=== PATIENT | male | born 1980 | race Caucasian/White ===

== ENCOUNTER 2016-10-19 20:24 | Inpatient (IN) | payer MEDICAID, OTHER ==
--- NOTE | 2016-10-19 21:09 | ED ---
Psych HPI - General Chief Complaint: Psychiatric Symptoms Stated Complaint: anxiety Time Seen by Provider: 10/19/16 20:51 Source: patient, RN notes reviewed, old records reviewed Mode of arrival: ambulatory - History of Present Illness Initial Comments: Physical 36-year-old male presenting to emergency room chief complaint of severe anxiety and suicidal thoughts. Patient reports that he's had a lot of stressors over the past week including losing his job in getting argument with his fiance. Patient reports that all the small thinks that it up and he now extend his life. Patient reports that he would plan to take a bunch of pills to overdose or supplements of the river and drown. Patient states that he has had thoughts of harming other people who have hurting him but denies any specific plans and will not discuss who. Patient reports he is taking Paxil currently he reports that he does not think it is working. Patient denies any drug or alcohol use. He does report that he is on pain medication for chronic pain. Patient reports that he's had racing thoughts, and has not eaten anything in the past day. Patient denies any recent fever, chills, shortness of breath, chest pain, back pain, abdominal pain, nausea vomiting, numbness or tingling, dysuria or hematuria, constipation or diarrhea, headaches or visual changes, or any other current symptoms - Related Data Home Medications Medication Instructions Recorded Confirmed ALPRAZolam [Xanax] 1 mg PO Q8HR 12/16/15 12/16/15 Diltiazem Cd [Cardizem CD] 180 mg PO DAILY 12/16/15 12/16/15 Omeprazole [PriLOSEC] 20 mg PO AC-BRKFST 12/16/15 12/16/15 chlordiazePOXIDE HCl [Librium] 25 mg PO DAILY 12/16/15 12/16/15 oxyCODONE HCL/ACETAMINOPHEN 1 tab PO Q6H PRN 12/16/15 12/16/15 [Percocet 10-325 mg] Previous Rx's Medication Instructions Recorded Propranolol [Inderal] 20 mg PO TID #90 tab 09/08/15 PARoxetine HCL [Paxil] 40 mg PO DAILY #30 tab 10/11/15 Diltiazem HCl [Cardizem] 90 mg PO DAILY #30 tablet 12/16/15 HYDROcodone/APAP 5-325MG [Mcloud 1 tab PO Q6HR PRN #30 tab 12/16/15 5-325] Warfarin [Coumadin] 5 mg PO HS #30 tab 12/16/15 Hydrocodone/Acetaminophen [[place] 1 each PO Q6HR PRN #10 tab 12/27/15 5-325] Penicillin V Potassium [Pen Vee K] 500 mg PO QID 10 Days 12/27/15 Allergies Allergy/AdvReac Type Severity Reaction Status Date / Time tramadol HCl [From Ultra] Allergy Rash/Hives Verified 10/19/16 20:34 venom-honey bee Allergy Rash/Hives Verified 10/19/16 20:34 [bee venom (honey bee)] ziprasidone HCl [From Geodon] Allergy Swelling Verified 10/19/16 20:34 ziprasidone mesylate Allergy Swelling Verified 10/19/16 20:34 [From Geodon] Review of Systems ROS Statement: Those systems with pertinent positive or pertinent negative responses have been documented in the HPI. ROS Other: All systems not noted in ROS Statement are negative. Past Medical History Past Medical History: Atrial Fibrillation, Chest Pain / Angina, GERD/Reflux, Hypertension Additional Past Medical History / Comment(s): chronic pain syndrome, left knee pain,HEP C, SITUATIONAL DEPRESSION PAST SUICIDAL IDEATIONS, GENERALIZED ANXIETY. 8-15 HAD EPISODE OF SVT WAS STARTED ON CARDIZEM. History of Any Multi-Drug Resistant Organisms: None Reported Past Surgical History: Orthopedic Surgery, Tonsillectomy Additional Past Surgical History / Comment(s): LEFT KNEE this copy with ACL and PCL reconstruction for a total of 4 surgeries. foreign body removal right hand. Past Anesthesia/Blood Transfusion Reactions: No Reported Reaction Past Psychological History: ADD/ADHD, Anxiety, Bipolar, Depression, Schizophrenia Smoking Status: Current every day smoker Past Alcohol Use History: None Reported Past Drug Use History: Cocaine, Heroin, Marijuana - Past Family History Mother Family Medical History: Cancer, Hypertension Additional Family Medical History / Comment(s): anxiety, depression. breast, brain, and bone CA Father Family Medical History: Hypertension Additional Family Medical History / Comment(s): Hep B Brother(s) Family Medical History: No Reported History General Exam - General Exam Comments Initial Comments: Is a anxious appearing 36-year-old male. Limitations: no limitations General appearance: alert, in no apparent distress Head exam: Present: atraumatic, normocephalic, normal inspection Eye exam: Present: normal appearance, PERRL, EOMI. Absent: scleral icterus, conjunctival injection, periorbital swelling ENT exam: Present: normal exam, mucous membranes moist Neck exam: Present: normal inspection. Absent: tenderness, meningismus, lymphadenopathy Respiratory exam: Present: normal lung sounds bilaterally. Absent: respiratory distress, wheezes, rales, rhonchi, stridor Cardiovascular Exam: Present: regular rate, normal rhythm, normal heart sounds. Absent: systolic murmur, diastolic murmur, rubs, gallop, clicks GI/Abdominal exam: Present: soft, normal bowel sounds. Absent: distended, tenderness, guarding, rebound, rigid Extremities exam: Present: normal inspection, full ROM, normal capillary refill. Absent: tenderness, pedal edema, joint swelling, calf tenderness Back exam: Present: normal inspection Neurological exam: Present: alert, oriented X3, CN II-XII intact Psychiatric exam: Present: normal affect, anxious. Absent: normal mood Skin exam: Present: warm, dry, intact, normal color. Absent: rash Course Vital Signs 10/19/16 20:31 Temperature 98.6 F Pulse Rate 118 H Respiratory 20 Rate Blood Pressure 155/90 O2 Sat by Pulse 96 Oximetry Medical Decision Making - Medical Decision Making Physical 36-year-old male presenting to emergency room chief complaint of severe anxiety and suicidal thoughts. Patient reports that he's had a lot of stressors over the past week including losing his job in getting argument with his fiance. Patient reports that all the small thinks that it up and he now extend his life. Patient reports that he would plan to take a bunch of pills to overdose or supplements of the river and drown. Patient states that he has had thoughts of harming other people who have hurting him but denies any specific plans and will not discuss who. Patient reports he is taking Paxil currently he reports that he does not think it is working. Patient's lab work was reviewed. He was testing positive for cocaine and methamphetamines. was evaluated by EPS. They deem he is fit for admission. Patient was admitted for suicidal thoughts and severe anxiety. - Lab Data Lab Results 10/19/16 Range/Units 21:30 Urine Opiates Screen Not Detected (NotDetected) Ur Oxycodone Screen Not Detected (NotDetected) Urine Methadone Screen Not Detected (NotDetected) Ur Propoxyphene Screen Not Detected (NotDetected) Ur Barbiturates Screen Not Detected (NotDetected) U Tricyclic Antidepress Detected H (NotDetected) Ur Phencyclidine Scrn Not Detected (NotDetected) Ur Amphetamines Screen Not Detected (NotDetected) U Methamphetamines Scrn Detected H (NotDetected) U Benzodiazepines Scrn Not Detected (NotDetected) Urine Cocaine Screen Detected H (NotDetected) U Marijuana (THC) Screen Detected H (NotDetected) Disposition Clinical Impression: Suicidal thoughts, Depression Disposition[facility] Condition: Stable Referrals: Melissa Christie MD [Primary Care Provider] - 1-2 days Time of Disposition: 01:20
[2016-10-20 02:38] VITALS: BMI 34.9
[2016-10-20] MEDS ORDERED: MAG HYDROX/AL HYDROX/SIMETH 30 ML CUP PO PRN (04:15)
[2016-10-20] MEDS ORDERED: MAGNESIUM HYDROXIDE 2,400 MG/10 ML CUP PO PRN (04:15)
[2016-10-20] MEDS: NICOTINE 14MG/24HR PATCH TRANSDERM SCH ×2 (09:21→17:52)
[2016-10-20] MEDS: PROPRANOLOL 20 MG TAB PO SCH ×3 (12:55→20:49)
[2016-10-20] MEDS: LORazepam 1 MG TAB PO PRN (12:57)
--- NOTE | 2016-10-20 14:58 | HP ---
DATE OF ADMISSION: DATE OF SERVICE: 10/20/2016 IDENTIFYING DATA: This patient is a 36-year-old male who was admitted to the mental health unit through the emergency room with suicidal ideation. HISTORY OF PRESENT ILLNESS: The patient states that he has been experiencing worsening symptoms of depression. He feels hopeless and has suicidal thoughts with a plan of overdosing on his medicine or drowning himself. Appetite has been decreased energy is low. Sleep has been poor for the last 3 days. He does not feel that things are going to improve. He lacks support and recently broke up with his fianc?e approximately 2 weeks ago. He reports that "my mind is going crazy and I can't concentrate". He feels that his brain is "scattered". He describes having anxiety and regular basis. He feels he is a worrier. He has struggled with panic attacks in the past. These occur approximately twice a month and will last anywhere from 5 to 30 minutes. He typically mimics symptoms of a heart attack. He will have shortness of breath, chest pain, etc. He denies any history of hypomanic or manic episodes. He is endorsing no symptoms of psychosis. He has no firearms at home. PAST PSYCHIATRIC HISTORY: The patient has been admitted to this unit several times. It appears he has been on this unit 7 times since November 2014. His last admission was with Dr. Wolf in May 2015. He has carried a diagnosis of major depressive disorder and opiate use disorder. He previously has worked with [facility] but is under no outpatient psychiatric care. He continues to take Paxil 40 mg at bedtime, Seroquel 200 mg at bedtime prescribed by a nurse practitioner at his primary care physician's office. He has previously tried Cymbalta, trazodone, Librium, Ritalin, Geodon. He has a history of one suicide attempt in December 2014 with medication overdose. PAST MEDICAL HISTORY: Hypertension, GERD, pain in his knee, elbow and back. He sees Dr. Mccrary for pain management and is prescribed Percocet 10 mg up to 4 a day. He states he will abuse those to get more energy and feel high. ALLERGIES: TRAMADOL, GEODON. CHEMICAL DEPENDENCY HISTORY: He reports no use of alcohol. He uses marijuana twice a week. He used cocaine approximately one week ago. He used methamphetamine one week ago. He uses his Percocet as noted. He states there are days he will use more in an abusive fashion. He has been to rehab at least 3 times in the past at [place]. FAMILY PSYCHIATRIC HISTORY: He has a brother known to have depression treated with Paxil. No suicides in the family. SOCIAL HISTORY: The patient is 36 years old. He has previously . He was engaged but his fianc?e left 2 weeks ago. He has of his own has been staying with a friend. He is unemployed. He previously worked as a conventional machinist. He has a high school education and an associate degree in business. No history of service. He has one brother and one half-brother. He has no children of his own. He is originally from [place]. He was raised by both parents. No abuse history. LEGAL HISTORY: He has been arrested 3 times for retail fraud. He served 3 months in custodial and was released in April for his third offense. MENTAL STATUS EXAM: The patient is a tall, overweight, male appearing his stated age. Eye contact is appropriate. He is dressed in his own clothing. Speech is fluent, spontaneous, nonpressured. He reports a depressed mood with hopeless thinking and suicidal ideation. He endorses feelings of anxiety and decreased concentration. He reports no homicidal ideation. He reports no auditory or visual hallucinations. He is endorsing no specific delusions as we reviewed several types. There is no evidence of psychosis. He does not appear hypomanic or manic. Thought process is linear. He demonstrates no tangential thinking, loose associations or flight of ideas. He demonstrates no verbal or physical aggressiveness. Insight and judgment limited. Cognitively, he is grossly intact. He is oriented to person, place, and date. He is able to name the days of the week backwards. INTELLECT: Average. STRENGTHS: Willingness to receive voluntary treatment. WEAKNESSES: Unemployment, homelessness, lack of support. IMPRESSIONS: 1. Major depressive disorder, recurrent, severe without psychosis, opiate use disorder, rule out polysubstance dependence. 2. Rule out cluster B traits. 3. Chronic pain, gastroesophageal reflux disease, and hypertension. 4. Recently terminated relationship with jaida, they were together for 2-1/2 years, unemployment, homelessness. PLAN: The patient has been admitted to the mental health unit. He is here voluntarily. We reviewed his medications and medication options. He does not wish to discontinue the Paxil. We will augment with Wellbutrin XL 150 mg in the morning. We will reduce the Seroquel to 150 mg at bedtime. He will be seen by the blockman for routine history and physical exam. Social work will meet with the patient to complete psychosocial assessment and begin discharge planning. We will monitor him for safety and encourage his participation in the milieu.
[2016-10-20] MEDS: QUEtiapine 100 MG TAB PO SCH (20:48)
[2016-10-20] MEDS: PARoxetine 20 MG TAB PO SCH (20:48)
[2016-10-21 08:29] LABS: Basophils % (A) 1 %; CH 32.4; CHCM 35.4; Eosinophils # (A) 0.4 k/uL (0-0.7); Eosinophils % (A) 4 %; HCT 46.7 % (39.0-53.0); HDW 2.69; HGB 16.1 gm/dL (13.0-17.5); Luc # (Auto) 0.23; Luc % (Auto) 3; Lymphocytes # (A) 2.8 k/uL (1.0-4.8); Lymphocytes % (A) 31 %; MCH 31.6 pg (25.0-35.0); MCHC 34.4 g/dL (31.0-37.0); Mean Platelet Volume 6.7; Monocytes # (A) 0.6 k/uL (0-1.0); Monocytes % (A) 6 %; Neutrophils # (A) 5.2 k/uL (1.3-7.7); Neutrophils % (A) 57 %; RBC 5.08 m/uL (4.30-5.90); RDW 13.4 % (11.5-15.5); WBC 9.2 k/uL (3.8-10.6); WBC (Perox) 9.26
[2016-10-21] MEDS: ACETAMINOPHEN TAB 325 MG TAB PO PRN ×2 (08:35→20:45)
[2016-10-21] MEDS: PANTOPRAZOLE 40 MG TABLET PO SCH (08:35)
[2016-10-21] MEDS: PROPRANOLOL 20 MG TAB PO SCH ×3 (08:35→21:08)
[2016-10-21] MEDS: NICOTINE 14MG/24HR PATCH TRANSDERM SCH (08:35)
[2016-10-21] MEDS: buPROPion XL 150 MG TAB.ER.24H PO SCH (08:35)
--- NOTE | 2016-10-21 09:11 | P.PN ---
Progress Note - Text Interval history: The patient is found in his room he follows me to an interview room. He reports he is experiencing a headache this morning. He did sleep last night even with us reducing the Seroquel to 150 mg. He has been compliant with medication. The Wellbutrin XL was started this morning. He continues to have mood symptoms and some hopelessness thinking. He plans on speaking with his fiance via phone today and does not know how the conversation will go. He states best case scenario they try to reconcile and he returns home worst-case scenario they part ways. He is hoping for the former. We discussed his use of Percocet and challenged the idea that he should continue taking knees for long-term treatment of chronic pain. He will give this more consideration. We are not utilizing opiates here on the mental health unit for him. He is reporting no withdrawal symptoms. Blood pressure seems to fluctuate we will continue to monitor. He states he has not used any Xanax recently and would not expect he would have any withdrawal symptoms. Mental status exam: The patient is alert he seated in the chair he stressors unclothing eye contact is appropriate he reports his mood fluctuates he still has some hopelessness thinking he does feel safe in the hospital he is reporting no homicidal ideation. He feels somewhat anxious regarding the phone call he will make today. Thought process is linear he demonstrates no tangential thinking loose associations or flight of ideas. He is endorsing no auditory or visual hallucinations no specific delusions, there is no evidence of psychosis. He demonstrates no verbal or physical aggressiveness. Cognitively he remains oriented. Affect is constricted. Plan: The patient will continue on his current medications we are starting the Wellbutrin XL this morning. We will monitor his blood pressure. We will await the outcome of his phone conversation with his fiance. He is encouraged to fully participate in the milieu.
[2016-10-21 09:24] LABS: ALT 124 U/L (21-72); AST 89 U/L (17-59); Alkaline Phosphatase 72 U/L (38-126); Anion Gap 10 mmol/L; Blood Urea Nitrogen 14 mg/dL (9-20); Calcium 9.6 mg/dL (8.4-10.2); Carbon Dioxide 25 mmol/L (22-30); Chloride 106 mmol/L (98-107); Glucose 106 mg/dL (74-99); Non-African American GFR(MDRD) >60 (>60 ml/min/1.73 sqM); Potassium 4.7 mmol/L (3.5-5.1); Sodium 141 mmol/L (137-145); Total Bilirubin 0.8 mg/dL (0.2-1.3); Total Protein 7.8 g/dL (6.3-8.2)
--- NOTE | 2016-10-21 10:11 | CONS ---
DATE OF CONSULTATION: REASON FOR CONSULTATION: Medical management of hypertension, chronic pain as well as atrial fibrillation. HISTORY OF PRESENT ILLNESS: Mr. Beaver is a 36-year-old male with a known history of atrial fibrillation, GERD, hypertension and hepatitis C with known history of IVDU and other multiple medical problems. Came to the ER with complaints of fever, anxiety and suicidal thoughts and reports that he had a lot of stressors over the past week including his job and also getting in argument with his fiance. Patient reports that he planned to take bunch of pills to overdose ( ). Patient admitted to the hospital into the mental health unit. Currently, patient denies any complaints of ( ). Denied any complaints of chest pain or short of breath. No nausea, vomiting, abdominal pain. ( ) Ro recent illnesses. There are no sick contacts at home. No recent travel. No nausea, vomiting, abdominal pain. REVIEW OF SYSTEMS: CONSTITUTIONAL: No fever. No chills. No weakness. RESPIRATORY: No cough or sputum production. CARDIOVASCULAR: No chest pain or short of breath. ABDOMEN: No nausea, vomiting, or abdominal pain. GENITOURINARY: No dysuria, no urgency, ENDOCRINE: Negative. PSYCHIATRIC: Anxious. SKIN: Negative. NEUROLOGIC: No headache or dizziness or lightheadedness. All other 14-point review of systems negative, except as above. PAST MEDICAL HISTORY: Atrial fibrillation, chest pain/angina, hepatitis C, chronic pain, ADHD. Anxiety, bipolar disorder, depression, schizophrenia. . PAST SURGICAL HISTORY: Left knee surgery with ACL and PCL reconstruction for a total of four surgeries, foreign body removal on the right hand, tonsillectomy. SOCIAL HISTORY: Patient is currently every day smoker. Smokes about 1 pack per day. Denied any alcohol. Patient does use marijuana on a weekly basis. FAMILY HISTORY: Mother had heart disease and hypertension as well as bone cancer and father had hypertension and hepatitis B and brother had no reported history. Home medication include Xanax, Cardizem CD, Prilosec, Librium, oxycodone, propanolol paroxetine, Cardizem, [place] 5, warfarin, Naprosyn V. PHYSICAL EXAMINATION: A 36-year-old male lying in the bed comfortably, awake, alert, oriented x3. Appears to be in no apparent distress. VITALS: Blood pressure is 125/65, pulse is 127, respirations 16, temperature afebrile. Pulse ox is 94% on room air. HEENT: Atraumatic, normocephalic. NECK: Supple, no JVD. CVS EXAM: S1, S2 heard, no murmurs, no gallop, no rub. LUNGS: Bilateral air entry is present. No wheezing. No crackles. Nonlabored breathing. ABDOMEN: Soft, nontender. Bowel sounds present. GM MOBILE: Awake, alert x3. No focal deficit. EXTREMITIES: No edema. Pulses palpable bilaterally. No clubbing or cyanosis. PSYCHIATRIC: Cooperative. LABORATORY DATA: Not available at this time. Toxicology UDS showed tricyclic antidepressants, cocaine and marijuana. IMPRESSION: 1. Major depression with suicidal ideation. History of bipolar disorder and schizophrenia. 2. Atrial fibrillation. Rate is controlled now. Continue with anticoagulation with Coumadin. 3. Coumadin monitoring. 4. Chest pain with angina history. 5. Gastroesophageal reflux disease. 6. Hypertension. 7. Chronic pain syndrome. 8. ( ) was not able to get treated due to insurance issues. 9. Polysubstance abuse with cocaine and marijuana use. 10. Nicotine addiction. 11. Deep venous thrombosis prophylaxis. Patient is ambulatory. DISCUSSIN AND PLAN: Patient will be continued on antidepressants and treatment as per Psychiatry recommendations, Coumadin monitoring. Continue with Cardizem for rate control and continue the home medications and follow up closely. Further recommendations based on the clinical course.
[2016-10-21] MEDS: LORazepam 1 MG TAB PO PRN (12:24)
[2016-10-21] MEDS: QUEtiapine 100 MG TAB PO SCH (20:44)
[2016-10-21] MEDS: PARoxetine 20 MG TAB PO SCH (20:44)
[2016-10-22] MEDS: buPROPion XL 150 MG TAB.ER.24H PO SCH (08:53)
[2016-10-22] MEDS: PANTOPRAZOLE 40 MG TABLET PO SCH (08:53)
[2016-10-22] MEDS: NICOTINE 14MG/24HR PATCH TRANSDERM SCH (08:53)
[2016-10-22] MEDS: PROPRANOLOL 20 MG TAB PO SCH ×3 (08:57→21:09)
[2016-10-22] MEDS: LORazepam 1 MG TAB PO PRN (09:32)
[2016-10-22] MEDS ORDERED: LORazepam 1 MG TAB PO PRN (10:10)
--- NOTE | 2016-10-22 10:15 | P.PN ---
Progress Note - Text Interval history: The patient is found in his room he follows me to an interview room. He reports his mood is worse because he had a troubling conversation with his girlfriend. He states that she called him week and told him she never wanted to speak with him again. She made threats that she was going to keep their unborn child from him and that she would have another man sign the certificate. The patient states that this is worst case scenario for him and he feels overwhelmed and hopeless. He reports not attending groups yesterday and we discussed the importance of participating in the milieu. Mental status exam: The patient is an overweight male appearing his stated age. He is dressed in his own clothing hygiene grooming fair. Eye contact is appropriate speech is fluent and spontaneous nonpressured. He does not appear hypomanic or manic. He demonstrates no symptoms of psychosis. He continues to have hopelessness thinking with some suicidal thoughts. No homicidal ideation reported. He endorses feeling anxious. He demonstrates no verbal or physical aggressiveness. Insight and judgment limited. He remains oriented to person place and date. Plan: The patient's will continue on his current medication. I will make the Ativan available up to twice daily temporarily. He is instructed to attend all groups. He is reporting hopelessness thinking and suicidal thoughts he is not yet appropriate for discharge. Given his conversation with his girlfriend yesterday he is encouraged to start thinking about where he will reside. We will continue to monitor him for safety.
[2016-10-22] MEDS: ACETAMINOPHEN TAB 325 MG TAB PO PRN (15:28)
[2016-10-22] MEDS: QUEtiapine 100 MG TAB PO SCH (21:03)
[2016-10-22] MEDS: PARoxetine 20 MG TAB PO SCH (21:03)
[2016-10-23] MEDS: buPROPion XL 150 MG TAB.ER.24H PO SCH (08:08)
[2016-10-23] MEDS: PROPRANOLOL 20 MG TAB PO SCH ×3 (08:10→20:32)
[2016-10-23] MEDS: NICOTINE 14MG/24HR PATCH TRANSDERM SCH (08:10)
[2016-10-23] MEDS: PANTOPRAZOLE 40 MG TABLET PO SCH (08:10)
--- NOTE | 2016-10-23 09:21 | P.PN ---
Progress Note - Text Interval history: The patient is found in his room he follows me to an interview room. He reports that his mood continues to be "up and down" he continues to experience hopelessness thinking. He did improve his effort in attending groups mostly yesterday afternoon. He has been trying to reach his father via phone without success. He's decided that he will try to avoid calling his girlfriend due to how poorly last conversation went. He is hoping that he will be able to start working Friday. We discussed his current medications we may decide to titrate the Wellbutrin further. He reports experiencing stomach cramping and diarrhea likely related to opiate withdrawal symptoms. The patient is an overweight male he is dressed in his own clothing. Eye contact is appropriate speech is fluent spontaneous nonpressured. He endorses a depressed mood with some continued hopelessness thinking. He does continue have some suicidal ideation but feels safe in the hospital. No homicidal ideation. He is endorsing no auditory or visual hallucinations or specific delusions. There is no evidence of psychosis hypomania or adrian. Thought process is linear. He can be circumstantial at times but there is no tangential thinking flight of ideas or loose associations. He is oriented to person place and date. He demonstrates no verbal or physical aggressiveness. Plan: The patient's will continue on his current psychotropic medications we will consider titrating the Wellbutrin further. We will discontinue the Ativan will be started on [place] 5 mg up to twice daily as needed for pain. He previously takes Percocet 10 mg 3 times a day. He is encouraged to participate fully in the milieu by attending groups. We will continue to monitor him for safety. He may be appropriate for discharge by the end of the week if clinically stable. Vital signs reviewed.
[2016-10-23] MEDS: HYDROcodone/APAP 5-325MG 1 EACH TAB PO PRN ×2 (09:39→21:32)
[2016-10-23] MEDS: QUEtiapine 100 MG TAB PO SCH (20:32)
[2016-10-23] MEDS: PARoxetine 20 MG TAB PO SCH (20:32)
[2016-10-24] MEDS: buPROPion XL 150 MG TAB.ER.24H PO SCH (08:08)
[2016-10-24] MEDS: PROPRANOLOL 20 MG TAB PO SCH ×3 (08:08→20:10)
[2016-10-24] MEDS: NICOTINE 14MG/24HR PATCH TRANSDERM SCH (08:08)
[2016-10-24] MEDS: PANTOPRAZOLE 40 MG TABLET PO SCH (08:08)
[2016-10-24] MEDS: HYDROcodone/APAP 5-325MG 1 EACH TAB PO PRN ×2 (08:09→20:13)
--- NOTE | 2016-10-24 10:49 | P.PN ---
Progress Note - Text Interval history: The patient is found in his room reading he follows me to an interview room. He states that his mood is improving. He felt more stable yesterday he felt safer. He was able to get a hold of his father and confirms that he has somewhere to stay upon discharge as his father has another house in this area. Social work will attempt to reach his father via phone for a support meeting. The patient continues to comply with medication he has been attending groups as instructed. Appetite stable. He plans on writing a letter to his girlfriend to express his feelings as she requested he not call her. Mental status exam: The patient is an overweight male he is dressed in his own clothing eye contact is appropriate speech is fluent spontaneous nonpressured. He reports his mood is improving he is endorsing no acute suicidal ideation today. He reports no homicidal ideation. He endorses no auditory or visual hallucinations no specific delusions. Insight and judgment grossly intact. He demonstrates no verbal or physical aggressiveness. Affect is appropriately expressive. Plan: The patient will continue on his current medications. It appears that he is beginning to stabilize if he is able to demonstrate continued stability and further improvement we will consider discharging him tomorrow. Vital signs reviewed we will continue to monitor for safety. He is encouraged to continue participating in the milieu.
[2016-10-24] MEDS: QUEtiapine 100 MG TAB PO SCH (20:11)
[2016-10-24] MEDS: PARoxetine 20 MG TAB PO SCH (20:11)
[2016-10-25 06:11] VITALS: BP 131/76; PULSE 67; RESP 16; TEMP 97.5
[2016-10-25] MEDS: PROPRANOLOL 20 MG TAB PO SCH (08:25)
[2016-10-25] MEDS: HYDROcodone/APAP 5-325MG 1 EACH TAB PO PRN (08:25)
[2016-10-25] MEDS: buPROPion XL 150 MG TAB.ER.24H PO SCH (08:25)
[2016-10-25] MEDS: PANTOPRAZOLE 40 MG TABLET PO SCH (08:26)
[2016-10-25] MEDS: NICOTINE 14MG/24HR PATCH TRANSDERM SCH (08:26)
--- NOTE | 2016-10-25 08:59 | P.DS ---
Providers Date of admission: 10/20/16 01:22 Expected date of discharge: 10/25/16 Attending physician: Darshan Roman Consults: 10/20/16 04:15 Consult Physician Routine Consulting Provider: Ivone Massey Consult Reason/Comments: medical management Do you want consulting provider notified?: Yes Primary care physician: Melissa Christie - Discharge Diagnosis(es) (1) Major depressive disorder, recurrent severe without psychotic features Current Visit: Yes Status: Acute Priority: High (2) Opiate dependence Current Visit: Yes Status: Acute Priority: Medium Hospital Course: Brief summary of admission note: This patient is a 36-year-old male who was admitted to the mental health unit through the emergency room with suicidal ideation. The patient reports experiencing worsening symptoms of depression resulting in suicidal thoughts and feeling hopeless. He had thoughts of overdosing with medicine or drowning himself. Energy was described as low appetite as decreased sleep has been poor. Some of the symptoms are precipitated by a recent breakup with his fiance 2 weeks prior to admission. For full details please refer to my psychiatric evaluation no dictated 10/20/2016. Summary of hospital course: The patient was admitted to the mental health unit he did sign in voluntarily. We reviewed his presenting symptoms and medication options. He wanted to continue using Paxil and Seroquel. We decided to reduce the dose of the Seroquel. We augmented with Wellbutrin XL 150 mg in the morning. The patient was able to tolerate the medications without report of side effects. Initially the patient isolated in his room he did not attend groups but during the course of this stay this improved and he began participating in the milieu. He has spoken with his father and social work has been able to reach his father via phone for a telephone support meeting. The patient has noted a resolution of his acute suicidal ideation while hospitalized here. He was seen by the motion graphics artist for routine history and physical exam. The patient is prescribed Percocet 10 mg as an outpatient he was experiencing some withdrawal symptoms we did utilize Dell 5 mg up to twice daily for pain as needed he plans to continue to see his pain physician for further treatment. He does not wish to participate in inpatient chemical dependency treatment for his presumed history of opiate use disorder. He is willing to pursue treatment as an outpatient with [facility]. Mental status exam: The patient is a tall overweight male he is dressed in his own clothing eye contact is appropriate speech is fluent. He reports his mood is much improved he reports no hopelessness thinking no suicidal ideation intent or plan. Hygiene grooming are good. He reports no auditory or visual hallucinations he reports no specific delusions there is no evidence of psychosis. He reports no homicidal ideation. He endorses no racing thoughts there is no pressured speech there is no evidence of hypomania or adrian. He demonstrates no verbal or physical aggressiveness. Insight and judgment grossly intact. Cognitively he remains oriented to person place and date. Affect is euthymic and appropriately expressive. He is observed appropriately interacting with peers. Impressions 1. He depressive disorder recurrent severe without psychosis, opiate use disorde 2. Rule out cluster B traits 3. Chronic pain, GERD, hypertension 4. Recent termination of relationship with fianc, temporary layoff from work Plan: The patient will be discharged mental health unit today he will reside at his father's home. The patient will be scheduled to do an intake with [facility] social work will confirm that appointment. The patient will continue on Paxil 40 mg daily, Seroquel 150 mg in the evening, Wellbutrin XL 150 mg in the morning. He is encouraged to abstain from use of substances. At length we discussed his use of opiates and if they are really necessary. He does not wish to participate in inpatient chemical dependency treatment he will address these issues further as an outpatient with mental health services. He reports no axis to firearms at his father's home. The patient is able to meet his own activities of daily living there is no imminent safety risk he is appropriate for discharge to outpatient care. He is instructed to return to the hospital with any acute safety concerns. Patient Condition at Discharge: Stable Plan - Discharge Summary New Discharge Prescriptions: New buPROPion XL [Wellbutrin XL] 150 mg PO DAILY #30 tab Nicotine 14Mg/24Hr Patch [Habitrol] 1 patch TRANSDERM DAILY #12 patch QUEtiapine [SEROquel] 150 mg PO HS #45 tab Continue Propranolol [Inderal] 20 mg PO TID #90 tab PARoxetine HCL [Paxil] 40 mg PO DAILY #30 tab Omeprazole [PriLOSEC] 20 mg PO AC-BRKFST oxyCODONE HCL/ACETAMINOPHEN [Percocet 10-325 mg] 1 tab PO Q6H PRN PRN Reason: Pain Ibuprofen [Motrin] 200 - 400 mg PO Q6HR PRN PRN Reason: Pain Discontinued ALPRAZolam [Xanax] 1 mg PO Q8HR PRN PRN Reason: Anxiety QUEtiapine [SEROquel] 200 mg PO HS Discharge Medication List Propranolol [Inderal] 20 mg PO TID #90 tab 09/08/15 [Rx] PARoxetine HCL [Paxil] 40 mg PO DAILY #30 tab 10/11/15 [Rx] Omeprazole [PriLOSEC] 20 mg PO AC-BRKFST 12/16/15 [History] oxyCODONE HCL/ACETAMINOPHEN [Percocet 10-325 mg] 1 tab PO Q6H PRN 12/16/15 [ History] Ibuprofen [Motrin] 200 - 400 mg PO Q6HR PRN 10/20/16 [History] Nicotine 14Mg/24Hr Patch [Habitrol] 1 patch TRANSDERM DAILY #12 patch 10/25/16 [ Rx] QUEtiapine [SEROquel] 150 mg PO HS #45 tab 10/25/16 [Rx] buPROPion XL [Wellbutrin XL] 150 mg PO DAILY #30 tab 10/25/16 [Rx] Follow up Appointment(s)/Referral(s): Intake, Intake [Other] - 10/30/16 9:30 am Melissa Christie MD [Primary Care Provider] - 1-2 days
== END 2016-10-25 10:10 | disposition home or self-care (01) | DRG 885 ==
LOC: EC 20:24 → 3MHU 10-20 01:22
PROVIDERS: ADMIT Psychiatry & Neurology Psychiatry; ATTEND Psychiatry & Neurology Psychiatry
DX: F33.2 Major depressive disorder, recurrent severe without psychotic features (principal); I48.91 Unspecified atrial fibrillation; R45.851 Suicidal ideations; F11.23 Opioid dependence with withdrawal; I10 Essential (primary) hypertension; E66.3 Overweight; F12.90 Cannabis use, unspecified, uncomplicated; F14.10 Cocaine abuse, uncomplicated; F17.210 Nicotine dependence, cigarettes, uncomplicated; F41.0 Panic disorder [episodic paroxysmal anxiety]; F41.1 Generalized anxiety disorder; F90.9 Attention-deficit hyperactivity disorder, unspecified type; G89.4 Chronic pain syndrome; K21.9 Gastro-esophageal reflux disease without esophagitis; Z79.01 Long term (current) use of anticoagulants; Z79.899 Other long term (current) drug therapy; Z81.8 Family history of other mental and behavioral disorders; Z82.49 Family history of ischemic heart disease and other diseases of the circulatory system
CPT/HCPCS: 80053; 80306; 82075; 84443; 85025

== ENCOUNTER 2016-11-17 13:27 | Emergency (ER) | payer OTHER ==
[2016-11-17 14:04] VITALS: BP 143/81; PULSE 74; RESP 18; TEMP 97.2
--- NOTE | 2016-11-17 14:32 | ED ---
ENT HPI - General Chief complaint: Dental/Oral Stated complaint: tooth abcess Time Seen by Provider: 11/17/16 14:09 Source: patient Mode of arrival: ambulatory Limitations: no limitations - Related Data Home Medications Medication Instructions Recorded Confirmed Omeprazole [PriLOSEC] 20 mg PO AC-BRKFST 12/16/15 11/17/16 Previous Rx's Medication Instructions Recorded Propranolol [Inderal] 20 mg PO TID #90 tab 09/08/15 PARoxetine HCL [Paxil] 40 mg PO DAILY #30 tab 10/11/15 QUEtiapine [SEROquel] 150 mg PO HS #45 tab 10/25/16 Acetaminophen-Codeine 300-30mg 1 tab PO Q8H PRN #15 tablet 11/17/16 [Tylenol #3] Penicillin V Potassium [Pen Vee K] 500 mg PO QID #40 tab 11/17/16 Allergies Allergy/AdvReac Type Severity Reaction Status Date / Time tramadol HCl [From Ultra] Allergy Rash/Hives Verified 11/17/16 14:16 venom-honey bee Allergy Rash/Hives Verified 11/17/16 14:16 [bee venom (honey bee)] ziprasidone HCl [From Geodon] Allergy Swelling Verified 11/17/16 14:16 ziprasidone mesylate Allergy Swelling Verified 11/17/16 14:16 [From Geodon] Review of Systems ROS Statement: Those systems with pertinent positive or pertinent negative responses have been documented in the HPI. ROS Other: All systems not noted in ROS Statement are negative. Past Medical History Past Medical History: Atrial Fibrillation, Chest Pain / Angina, GERD/Reflux, Hypertension Additional Past Medical History / Comment(s): chronic pain syndrome, left knee pain,HEP C, SITUATIONAL DEPRESSION PAST SUICIDAL IDEATIONS, GENERALIZED ANXIETY. 8-15 HAD EPISODE OF SVT WAS STARTED ON CARDIZEM. History of Any Multi-Drug Resistant Organisms: None Reported Past Surgical History: Orthopedic Surgery, Tonsillectomy Additional Past Surgical History / Comment(s): LEFT KNEE this copy with ACL and PCL reconstruction for a total of 4 surgeries. foreign body removal right hand. Past Anesthesia/Blood Transfusion Reactions: No Reported Reaction Past Psychological History: ADD/ADHD, Anxiety, Bipolar, Depression Smoking Status: Current every day smoker Past Alcohol Use History: None Reported Past Drug Use History: Marijuana - Past Family History Mother Family Medical History: Cancer, Hypertension Additional Family Medical History / Comment(s): anxiety, depression. breast, brain, and bone CA Father Family Medical History: Hypertension Additional Family Medical History / Comment(s): Hep B Brother(s) Family Medical History: No Reported History General Exam Limitations: no limitations Course Vital Signs 11/17/16 14:02 Temperature 97.2 F L Pulse Rate 74 Respiratory 18 Rate Blood Pressure 143/81 O2 Sat by Pulse 97 Oximetry Disposition Clinical Impression: Dental abscess Disposition: HOME SELF-CARE Condition: Good Instructions: Dental Abscess (ED) Additional Instructions: Patient denies to follow-up with the dental clinic. Take all of your antibiotics. Return to the emergency department if any alarming signs or symptoms occur. [facility] [id number] [place] [address] [phone] (existing clients only) For new clients: [phone] 1st consult: $50 (includes Xrays) Usually 30% less then private dentist for visits after. [employer] Have to pay $50 for Xrays anmd rest is covered. [phone] Prescriptions: Acetaminophen-Codeine 300-30mg [Tylenol #3] 1 tab PO Q8H PRN #15 tablet PRN Reason: Pain Penicillin V Potassium [Pen Vee K] 500 mg PO QID #40 tab Referrals: Melissa Christie MD [Primary Care Provider] - 1-2 days Time of Disposition: 14:30
== END 2016-11-17 14:44 | disposition home or self-care (01) ==
LOC: EC 13:27
DX: K04.7 Periapical abscess without sinus (principal); K21.9 Gastro-esophageal reflux disease without esophagitis; F17.200 Nicotine dependence, unspecified, uncomplicated; Z79.899 Other long term (current) drug therapy; Z88.6 Allergy status to analgesic agent; Z88.8 Allergy status to other drugs, medicaments and biological substances; Z91.030 Bee allergy status
CPT/HCPCS: 99282

== ENCOUNTER 2016-11-28 00:12 | Emergency (ER) | payer OTHER ==
[2016-11-28 00:20] VITALS: RESP 18
[2016-11-28] MEDS ORDERED: MORPHINE SULFATE 10 MG/ML SYRINGE IM STA (00:40)
[2016-11-28 00:42] LABS: Appearance,Urine Clear (Clear); Bilirubin,Urine Negative (Negative); Glucose,Urine (UA) Negative (Negative); Ketones,Urine Negative (Negative); Leukocyte Esterase,Urine Negative (Negative); Mucus,Urine Few /hpf; Nitrite,Urine Negative (Negative); PH, Urine 5.5 (5.0-8.0); Particle Count 9713; Protein,Urine 1+ (Negative); RBC,Urine 1 /hpf (0-5); Specific Gravity,Urine 1.037 (1.001-1.035); Squamous Epithelial Cell,Urine <1 /hpf (0-4); UA Billing (MACRO vs. MICRO) MICRO; WBC,Urine 2 /hpf (0-5)
--- NOTE | 2016-11-28 00:44 | ED ---
Back Pain HPI - General Chief Complaint: Back Pain/Injury Stated Complaint: back pain Time Seen by Provider: 11/28/16 00:26 Source: patient, RN notes reviewed Limitations: no limitations - History of Present Illness Initial Comments: Patient is a 36-year-old male presents to the emergency room for evaluation of low back pain. Patient states a few hours ago while sitting on a couch he noticed pain over his lower lumbar vertebrae. Patient denies pain radiating down his legs. Patient denies paresthesias. Patient denies saddle anesthesia. Patient denies urine or fecal incontinence. Patient also states he has been having on and off decrease in urination for the past few weeks. Patient does state he correlates this with his narcotics. Patient states whenever he takes the Percocet he notices decrease in urine. Patient states that he took 2 Aleve and 10 mg Percocet with no relief of back pain. Patient states pain is worse with movement. Patient denies history kidney stones. Patient denies fevers or chills. Patient denies recent fall or trauma to his back. Patient denies recent changes in physical activity or heavy lifting. - Related Data Home Medications Medication Instructions Recorded Confirmed Omeprazole [PriLOSEC] 20 mg PO AC-BRKFST 12/16/15 11/17/16 Previous Rx's Medication Instructions Recorded Propranolol [Inderal] 20 mg PO TID #90 tab 09/08/15 PARoxetine HCL [Paxil] 40 mg PO DAILY #30 tab 10/11/15 QUEtiapine [SEROquel] 150 mg PO HS #45 tab 10/25/16 Acetaminophen-Codeine 300-30mg 1 tab PO Q8H PRN #15 tablet 11/17/16 [Tylenol #3] Penicillin V Potassium [Pen Vee K] 500 mg PO QID #40 tab 11/17/16 Orphenadrine [Norflex] 100 mg PO Q12H PRN #12 tablet.er 11/28/16 Allergies Allergy/AdvReac Type Severity Reaction Status Date / Time tramadol HCl [From Ultram] Allergy Rash/Hives Verified 11/28/16 00:20 venom-honey bee Allergy Rash/Hives Verified 11/28/16 00:20 [bee venom (honey bee)] ziprasidone HCl [From Geodon] Allergy Swelling Verified 11/28/16 00:20 ziprasidone mesylate Allergy Swelling Verified 11/28/16 00:20 [From Rowan] Review of Systems ROS Statement: Those systems with pertinent positive or pertinent negative responses have been documented in the HPI. ROS Other: All systems not noted in ROS Statement are negative. Past Medical History Past Medical History: Atrial Fibrillation, Chest Pain / Angina, GERD/Reflux, Hypertension Additional Past Medical History / Comment(s): chronic pain syndrome, left knee pain, HEP C, SITUATIONAL DEPRESSION PAST SUICIDAL IDEATIONS, GENERALIZED ANXIETY. 8-14-15 HAD EPISODE OF SVT WAS STARTED ON CARDIZEM. History of Any Multi-Drug Resistant Organisms: None Reported Past Surgical History: Orthopedic Surgery, Tonsillectomy Additional Past Surgical History / Comment(s): LEFT KNEE with ACL and PCL reconstruction for a total of 4 surgeries. foreign body removal right hand. Past Anesthesia/Blood Transfusion Reactions: No Reported Reaction Past Psychological History: ADD/ADHD, Anxiety, Bipolar, Depression Smoking Status: Current every day smoker Past Alcohol Use History: None Reported Past Drug Use History: Marijuana - Past Family History Mother Family Medical History: Cancer, Hypertension Additional Family Medical History / Comment(s): anxiety, depression. breast, brain, and bone CA Father Family Medical History: Hypertension Additional Family Medical History / Comment(s): Hep B Brother(s) Family Medical History: No Reported History General Exam - General Exam Comments Initial Comments: Sitting in exam room, no acute distress. Limitations: no limitations General appearance: alert, in no apparent distress Head exam: Present: atraumatic, normocephalic, normal inspection Eye exam: Present: normal appearance ENT exam: Present: normal exam Neck exam: Present: normal inspection Respiratory exam: Present: normal lung sounds bilaterally. Absent: respiratory distress Cardiovascular Exam: Present: regular rate, normal rhythm, normal heart sounds Extremities exam: Present: normal inspection, full ROM, normal capillary refill. Absent: tenderness Back exam: Present: normal inspection, vertebral tenderness (lumbosacral spine) . Absent: paraspinal tenderness Neurological exam: Present: alert, oriented X3, CN II-XII intact, normal gait Psychiatric exam: Present: normal affect, normal mood Skin exam: Present: warm, dry, intact, normal color. Absent: rash Course Vital Signs 11/28/16 11/28/16 00:17 01:52 Temperature 98.1 F 97.5 F L Pulse Rate 70 74 Respiratory 18 18 Rate Blood Pressure 139/86 147/91 O2 Sat by Pulse 99 96 Oximetry Medical Decision Making - Medical Decision Making Patient is a 36-year-old male presents emergency room for evaluation of back pain. X-rays significant for 8 mm retrolithiasis of L1 on L2, new compared to the prior study. Patient states he is feeling a lot better after pain medications given. Patient already takes 10 mg Percocet at home. Will add on muscle relaxer and have a follow-up with Dr. Henley. Patient states he understands everything that was discussed with him. Return parameters discussed. Case discussed Dr. Trejo. - Lab Data Lab Results 11/28/16 Range/Units 00:20 Urine Color Yellow Urine Appearance Clear (Clear) Urine pH 5.5 (5.0-8.0) Ur Specific [place] 1.037 H (1.001-1.035) Urine Protein 1+ H (Negative) Urine Glucose (UA) Negative (Negative) Urine Ketones Negative (Negative) Urine Blood Negative (Negative) Urine Nitrite Negative (Negative) Urine Bilirubin Negative (Negative) Urine Urobilinogen 3.0 (<2.0) mg/dL Ur Leukocyte Esterase Negative (Negative) Urine RBC 1 (0-5) /hpf Urine WBC 2 (0-5) /hpf Ur Squamous Epith Cells <1 (0-4) /hpf Hyaline Casts 3 H (0-2) /lpf Urine Mucus Few H (None) /hpf - Radiology Data Radiology results: report reviewed, image reviewed Disposition Clinical Impression: Retrolisthesis of vertebrae, Low back pain Disposition: HOME SELF-CARE Condition: Good Instructions: Acute Low Back Pain (ED) Additional Instructions: Ice on and off for 10-15 minutes for the next 24-48 hours. Continue taking at home medication as needed for pain. Please follow-up with hearing aid specialist for further evaluation. If new symptoms develop or symptoms worsen, please return to the ER. Prescriptions: Orphenadrine [Norflex] 100 mg PO Q12H PRN #12 tablet.er PRN Reason: Pain Referrals: Melissa Christie MD [Primary Care Provider] - 1-2 days Alondra Henley DO [Doctor of Osteopathic Medicine] - 1-2 days Time of Disposition: 01:37
--- NOTE | 2016-11-28 01:12 | XR ---
EXAM: XR Lumbar Spine, 2 or 3 Views CLINICAL HISTORY: Reason: Pain TECHNIQUE: Frontal and lateral views of the lumbar spine. COMPARISON: 10/26/2015 FINDINGS: Vertebrae: 8mm retrolisthesis of L1 on L2, new compared to the prior study. 8mm retrolisthesis of L2 on L3, 6 mm retrolisthesis of L3 on L4 are similar compared to the prior study. No compression fracture. Disc spaces: Mild degenerative disc disease. Soft tissues: Paravertebral soft tissues appear normal. IMPRESSION: 8mm retrolisthesis of L1 on L2, new compared to the prior study. Otherwise, not substantially changed.
[2016-11-28 01:53] VITALS: BP 147/91; PULSE 74; TEMP 97.5
== END 2016-11-28 01:53 | disposition home or self-care (01) ==
LOC: EC 00:12
DX: M43.16 Spondylolisthesis, lumbar region (principal); K21.9 Gastro-esophageal reflux disease without esophagitis; F17.200 Nicotine dependence, unspecified, uncomplicated; Z79.899 Other long term (current) drug therapy; Z88.6 Allergy status to analgesic agent; Z91.030 Bee allergy status; Z88.8 Allergy status to other drugs, medicaments and biological substances
CPT/HCPCS: 99283; 96372; 81001; 72110; J2270

== ENCOUNTER 2016-11-28 04:14 | Emergency (ER) | payer OTHER ==
[2016-11-28 04:21] VITALS: PULSE 70; RESP 18
[2016-11-28] MEDS ORDERED: HYDROcodone/APAP 5-325MG 1 EACH TAB PO STA ×2 (05:21→05:28)
[2016-11-28] MEDS ORDERED: methylPREDNISolone SOD SUCCI 125 MG/2 ML VIAL IM ONE (05:21)
--- NOTE | 2016-11-28 06:07 | ED ---
Back Pain HPI - General Chief Complaint: Back Pain/Injury Stated Complaint: back pain Time Seen by Provider: 11/28/16 05:16 Source: patient Limitations: no limitations - History of Present Illness Initial Comments: This patient is a 36-year-old man resenting with low back pain that started around 9 PM tonight. He was seen here earlier and received medication which improved his symptoms but he states that after seemed to wear off the pain recurred. He is not having any change in bladder or bowel function. He is not having weakness or numbness of the extremities. Patient denies any direct trauma to the back. There is no abdominal pain MD Complaint: back pain -: hour(s) Similar Symptoms Previously: Yes Place: home Radiation: none Severity: severe Quality: aching Consistency: constant Improves With: immobilization, medication Worsens With: movement Context: while lifting Associated Symptoms: denies other symptoms - Related Data Home Medications Medication Instructions Recorded Confirmed Omeprazole [PriLOSEC] 20 mg PO AC-BRKFST 12/16/15 11/28/16 Gabapentin [Neurontin] 100 mg PO DAILY 11/28/16 11/28/16 Previous Rx's Medication Instructions Recorded Propranolol [Inderal] 20 mg PO TID #90 tab 09/08/15 PARoxetine HCL [Paxil] 40 mg PO DAILY #30 tab 10/11/15 QUEtiapine [SEROquel] 150 mg PO HS #45 tab 10/25/16 Acetaminophen-Codeine 300-30mg 1 tab PO Q8H PRN #15 tablet 11/17/16 [Tylenol #3] Penicillin V Potassium [Pen Vee K] 500 mg PO QID #40 tab 11/17/16 Orphenadrine [Norflex] 100 mg PO Q12H PRN #12 tablet.er 11/28/16 Allergies Allergy/AdvReac Type Severity Reaction Status Date / Time tramadol HCl [From Ultra] Allergy Rash/Hives Verified 11/28/16 04:21 venom-honey bee Allergy Rash/Hives Verified 11/28/16 04:21 [bee venom (honey bee)] ziprasidone HCl [From Geodon] Allergy Swelling Verified 11/28/16 04:21 ziprasidone mesylate Allergy Swelling Verified 11/28/16 04:21 [From Geodon] Review of Systems ROS Statement: Those systems with pertinent positive or pertinent negative responses have been documented in the HPI. ROS Other: All systems not noted in ROS Statement are negative. Constitutional: Denies: fever, chills, weakness Respiratory: Denies: cough, dyspnea Cardiovascular: Denies: chest pain, palpitations, edema Gastrointestinal: Denies: abdominal pain, diarrhea, constipation Genitourinary: Denies: dysuria, hematuria, testicular pain Musculoskeletal: Reports: as per HPI, back pain Skin: Denies: rash Neurological: Denies: headache, weakness, numbness, paresthesias Past Medical History Past Medical History: Atrial Fibrillation, Chest Pain / Angina, GERD/Reflux, Hypertension Additional Past Medical History / Comment(s): chronic pain syndrome, left knee pain, HEP C, SITUATIONAL DEPRESSION PAST SUICIDAL IDEATIONS, GENERALIZED ANXIETY. 8-15 HAD EPISODE OF SVT WAS STARTED ON CARDIZEM. History of Any Multi-Drug Resistant Organisms: None Reported Past Surgical History: Orthopedic Surgery, Tonsillectomy Additional Past Surgical History / Comment(s): LEFT KNEE with ACL and PCL reconstruction for a total of 4 surgeries. foreign body removal right hand. Past Anesthesia/Blood Transfusion Reactions: No Reported Reaction Past Psychological History: ADD/ADHD, Anxiety, Bipolar, Depression Smoking Status: Current every day smoker Past Alcohol Use History: None Reported Past Drug Use History: Marijuana - Past Family History Mother Family Medical History: Cancer, Hypertension Additional Family Medical History / Comment(s): anxiety, depression. breast, brain, and bone CA Father Family Medical History: Hypertension Additional Family Medical History / Comment(s): Hep B Brother(s) Family Medical History: No Reported History General Exam Limitations: no limitations General appearance: alert, in no apparent distress Head exam: Present: atraumatic, normocephalic Neck exam: Present: normal inspection, full ROM Respiratory exam: Present: normal lung sounds bilaterally. Absent: respiratory distress, wheezes, rales, rhonchi, stridor Cardiovascular Exam: Present: regular rate, normal rhythm, normal heart sounds. Absent: systolic murmur, diastolic murmur, rubs, gallop GI/Abdominal exam: Present: soft. Absent: tenderness, guarding, pulsatile mass , hernia Back exam: Present: normal inspection, tenderness. Absent: CVA tenderness (R), CVA tenderness (L) Neurological exam: Present: reflexes normal. Absent: motor sensory deficit Skin exam: Present: warm, dry, intact, normal color. Absent: rash Course Vital Signs 11/28/16 11/28/16 04:19 06:15 Temperature 97.2 F L 97.5 F L Pulse Rate 70 70 Respiratory 18 18 Rate Blood Pressure 142/84 127/68 O2 Sat by Pulse 97 98 Oximetry Medical Decision Making - Medical Decision Making Patient is a 36-year-old man with back pain found have some spondylolisthesis. He is not having any signs of cord compression. Patient did have relief with analgesia and will follow with back specialist. Discussed return parameters. Disposition Clinical Impression: Retrolisthesis of vertebrae Disposition: HOME SELF-CARE Condition: Fair Instructions: Acute Low Back Pain (ED) Referrals: Alondra Henley DO [Doctor of Osteopathic Medicine] - 1-2 days
[2016-11-28 06:16] VITALS: BP 127/68; TEMP 97.5
--- NOTE | 2016-12-04 06:41 | CDI ---
Documentation Clarification OP Dear Maya Gómez MD, Please do addendum to ED report for missing HPI and Physical Examination Thank you, Gloria Zimmer drafter automotive design If you have any questions, please contact configuration manager at [phone]. [facility]
== END 2016-11-28 06:15 | disposition home or self-care (01) ==
LOC: EC 04:14
DX: M43.16 Spondylolisthesis, lumbar region (principal); K21.9 Gastro-esophageal reflux disease without esophagitis; F17.200 Nicotine dependence, unspecified, uncomplicated; Z98.890 Other specified postprocedural states; Z79.899 Other long term (current) drug therapy; Z88.6 Allergy status to analgesic agent; Z88.8 Allergy status to other drugs, medicaments and biological substances; Z91.030 Bee allergy status; Z53.8 Procedure and treatment not carried out for other reasons
CPT/HCPCS: 96372 ×2; 99283 ×2; J2930

== ENCOUNTER 2017-02-14 14:45 | Emergency (ER) | payer OTHER ==
[2017-02-14 14:51] VITALS: BP 160/102; PULSE 85; RESP 18; TEMP 97.4
[2017-02-14] MEDS ORDERED: KETOROLAC 60 MG/2 ML VIAL IM STA (15:02)
--- NOTE | 2017-02-14 15:09 | XR ---
Left knee HISTORY: Trauma and pain 3 views of the left knee Correlation to prior exam 07/28/2014 Patient shows postoperative changes as on previous exam. Alignment and bone mineralization are stable . Mild marginal spurring in the medial compartment. Small joint effusion suspected. No fracture or di slocation. IMPRESSION: Postop changes, mild osteoarthritic change
--- NOTE | 2017-02-14 15:13 | ED ---
Lower Extremity Injury HPI - General Chief Complaint: Extremity Injury, Lower Stated Complaint: Knee Pain Source: patient Mode of arrival: wheelchair Limitations: no limitations - History of Present Illness Initial Comments: This is a pleasant 36-year-old male presents emergency department complaining of left knee pain. Patient states that in 1996 had arthroscopic surgery for ligament repair. Patient states he is doing yard work about 2 hours ago and stepped in a small hole in his yard. He states he believes he twisted his knee. Patient states that he has pain in the anterior aspect in the which is sharp in nature and exacerbated by movement. He denies any distal or proximal pain. Patient is able to ambulate with antalgia. Patient denies any other injuries. Patient is asking for something for pain stating that he has taken pain medication previously. Patient denies any additional orthopedic injuries. No shortness breath or chest pain. - Related Data Home Medications Medication Instructions Recorded Confirmed Omeprazole [PriLOSEC] 20 mg PO AC-BRKFST 12/16/15 11/28/16 Gabapentin [Neurontin] 100 mg PO DAILY 11/28/16 11/28/16 Previous Rx's Medication Instructions Recorded Propranolol [Inderal] 20 mg PO TID #90 tab 09/08/15 PARoxetine HCL [Paxil] 40 mg PO DAILY #30 tab 10/11/15 QUEtiapine [SEROquel] 150 mg PO HS #45 tab 10/25/16 Acetaminophen-Codeine 300-30mg 1 tab PO Q8H PRN #15 tablet 11/17/16 [Tylenol #3] Penicillin V Potassium [Pen Vee K] 500 mg PO QID #40 tab 11/17/16 Orphenadrine [Norflex] 100 mg PO Q12H PRN #12 tablet.er 11/28/16 Naproxen [Naprosyn] 500 mg PO Q12HR PRN #16 tab 02/14/17 Allergies Allergy/AdvReac Type Severity Reaction Status Date / Time tramadol HCl [From Ultram] Allergy Rash/Hives Verified 02/14/17 14:51 venom-honey bee Allergy Rash/Hives Verified 02/14/17 14:51 [bee venom (honey bee)] ziprasidone HCl [From Geodon] Allergy Swelling Verified 02/14/17 14:51 ziprasidone mesylate Allergy Swelling Verified 02/14/17 14:51 [From Geodon] Review of Systems ROS Statement: Those systems with pertinent positive or pertinent negative responses have been documented in the HPI. ROS Other: All systems not noted in ROS Statement are negative. Past Medical History Past Medical History: Atrial Fibrillation, Chest Pain / Angina, GERD/Reflux, Hypertension Additional Past Medical History / Comment(s): chronic pain syndrome, left knee pain, HEP C, SITUATIONAL DEPRESSION PAST SUICIDAL IDEATIONS, GENERALIZED ANXIETY. 8-14-15 HAD EPISODE OF SVT WAS STARTED ON CARDIZEM. History of Any Multi-Drug Resistant Organisms: None Reported Past Surgical History: Orthopedic Surgery, Tonsillectomy Additional Past Surgical History / Comment(s): LEFT KNEE with ACL and PCL reconstruction for a total of 4 surgeries. foreign body removal right hand. Past Anesthesia/Blood Transfusion Reactions: No Reported Reaction Past Psychological History: ADD/ADHD, Anxiety, Bipolar, Depression Smoking Status: Current every day smoker Past Alcohol Use History: None Reported Past Drug Use History: Marijuana - Past Family History Mother Family Medical History: Cancer, Hypertension Additional Family Medical History / Comment(s): anxiety, depression. breast, brain, and bone CA Father Family Medical History: Hypertension Additional Family Medical History / Comment(s): Hep B Brother(s) Family Medical History: No Reported History General Exam Limitations: no limitations Course Vital Signs 02/14/17 14:49 Temperature 97.4 F L Pulse Rate 85 Respiratory 18 Rate Blood Pressure 160/102 O2 Sat by Pulse 98 Oximetry Medical Decision Making - Medical Decision Making Discussed findings with the patient. There was no evidence of fracture on x- ray as read by me. Complete three-view left knee was done. Patient did have surgical screws in place. Patient apparently was on pain contract with Dr. Mccrary, I did inform him I would not be giving him any controlled substance. Here. I did agree to a shot of Toradol anti-inflammatory medication. Patient' s seems to understand. Work note written. Return and follow-up parameters discussed. - Radiology Data Radiology results: pending, image reviewed Disposition Clinical Impression: Sprain of unspecified site of left knee, initial encounter Disposition: HOME SELF-CARE Condition: Good Instructions: Knee Sprain (ED), Knee Immobilizer (ED) Additional Instructions: Follow-up with the orthopedic physician as directed. Wear the knee immobilizer as directed.Return to the ER at once if the symptoms worsen or problems or difficulties arise. Do not take Naprosyn for at least 8 hours after receiving the injection of ketorolac. Prescriptions: Naproxen [Naprosyn] 500 mg PO Q12HR PRN #16 tab PRN Reason: Pain Referrals: Jalen Winkler MD [Medical Doctor] - 02/19/17 Time of Disposition: 15:09
== END 2017-02-14 15:25 | disposition home or self-care (01) ==
LOC: EC 14:45
DX: S83.92XA Sprain of unspecified site of left knee, initial encounter (principal); K21.9 Gastro-esophageal reflux disease without esophagitis; F17.200 Nicotine dependence, unspecified, uncomplicated; Z98.890 Other specified postprocedural states; Z88.5 Allergy status to narcotic agent; Z91.030 Bee allergy status; Z88.8 Allergy status to other drugs, medicaments and biological substances; Z79.899 Other long term (current) drug therapy; W18.42XA Slipping, tripping and stumbling without falling due to stepping into hole or opening, initial encounter; Y92.096 Garden or yard of other non-institutional residence as the place of occurrence of the external cause
CPT/HCPCS: 99283 ×2; 96372 ×2; 73562; J1885

== ENCOUNTER 2017-03-16 18:05 | Emergency (ER) | payer OTHER ==
[2017-03-16] MEDS ORDERED: ONDANSETRON 4 MG/2 ML VIAL IVP STA (18:23)
[2017-03-16] MEDS ORDERED: ACETAMINOPHEN TAB 500 MG TAB PO STA (18:26)
[2017-03-16] MEDS ORDERED: IBUPROFEN 600 MG TAB PO STA (18:26)
--- NOTE | 2017-03-16 18:26 | ED ---
General Adult HPI - General Source: patient, RN notes reviewed Mode of arrival: wheelchair Limitations: no limitations <Larry Perry - Last Filed: 03/16/17 18:53> <Cesar Walsh - Last Filed: 03/16/17 21:12> - General Chief complaint: Abdominal Pain Stated complaint: sudden onset vomiting Time Seen by Provider: 03/16/17 18:05 - History of Present Illness Initial comments: This is a 36-year-old male who presents to the emergency department complaining of vomiting since last evening after dinner. Patient states he continued to vomit throughout the day today. Patient states his belly hurts everywhere a little bit. Patient states had no diarrhea. Patient denies knowing of any fever. Patient states she does have intermittent chest pains when he is vomiting. Patient denies shortness of breath or difficulty breathing. Patient states he feels out of it. Patient denies any palpitations. Patient denies any back pain. Patient denies any extremity pain. Patient denies any swelling to his legs or calf tenderness (Larry Perry) - Related Data Home Medications Medication Instructions Recorded Confirmed Omeprazole [PriLOSEC] 20 mg PO AC-BRKFST 12/16/15 03/16/17 Gabapentin [Neurontin] 100 mg PO TID 11/28/16 03/16/17 PARoxetine HCL [Paxil] 40 mg PO HS 03/02/17 03/16/17 QUEtiapine FUMARATE [SEROquel] 200 mg PO HS 03/02/17 03/16/17 Previous Rx's Medication Instructions Recorded Propranolol [Inderal] 20 mg PO TID #90 tab 09/08/15 Ondansetron Odt [Zofran Odt] 4 mg PO Q8HR PRN #10 tab 03/16/17 Allergies Allergy/AdvReac Type Severity Reaction Status Date / Time tramadol HCl [From Ultra] Allergy Rash/Hives Verified 03/16/17 18:30 venom-honey bee Allergy Rash/Hives Verified 03/16/17 18:30 [bee venom (honey bee)] ziprasidone HCl [From Geodon] Allergy Swelling Verified 03/16/17 18:30 ziprasidone mesylate Allergy Swelling Verified 03/16/17 18:30 [From Geodon] Review of Systems ROS Other: All systems not noted in ROS Statement are negative. <Larry Perry - Last Filed: 03/16/17 18:53> ROS Other: All systems not noted in ROS Statement are negative. <Cesar Walsh - Last Filed: 03/16/17 21:12> ROS Statement: Those systems with pertinent positive or pertinent negative responses have been documented in the HPI. Past Medical History Past Medical History: Atrial Fibrillation, Chest Pain / Angina, GERD/Reflux, Hypertension Additional Past Medical History / Comment(s): chronic pain syndrome, left knee pain, HEP C, SITUATIONAL DEPRESSION PAST SUICIDAL IDEATIONS, GENERALIZED ANXIETY. 12-09-14 HAD EPISODE OF SVT WAS STARTED ON CARDIZEM. History of Any Multi-Drug Resistant Organisms: None Reported Past Surgical History: Orthopedic Surgery, Tonsillectomy Additional Past Surgical History / Comment(s): LEFT KNEE with ACL and PCL reconstruction for a total of 4 surgeries. foreign body removal right hand. Past Anesthesia/Blood Transfusion Reactions: No Reported Reaction Past Psychological History: ADD/ADHD, Anxiety, Bipolar, Depression Smoking Status: Current every day smoker Past Alcohol Use History: None Reported Past Drug Use History: Marijuana - Past Family History Mother Family Medical History: Cancer, Hypertension Additional Family Medical History / Comment(s): anxiety, depression. breast, brain, and bone CA Father Family Medical History: Hypertension Additional Family Medical History / Comment(s): Hep B Brother(s) Family Medical History: No Reported History <Larry Perry - Last Filed: 03/16/17 18:53> General Exam Limitations: no limitations <Larry Perry - Last Filed: 03/16/17 18:53> <Cesar Walsh - Last Filed: 03/16/17 21:12> - General Exam Comments Initial Comments: GENERAL: Patient is well-developed and well-nourished. Patient is nontoxic and well- hydrated and is in nmilde distress. ENT: Neck is soft and supple. No significant lymphadenopathy is noted. Oropharynx is clear. Moist mucous membranes. Neck has full range of motion without eliciting any pain. EYES: The sclera were anicteric and conjunctiva were pink and moist. Extraocular movements were intact and pupils were equal round and reactive to light. Eyelids were unremarkable. PULMONARY: Unlabored respirations. Good breath sounds bilaterally. No audible rales rhonchi or wheezing was noted. CARDIOVASCULAR: There is a regular rate and rhythm without any murmurs gallops or rubs. ABDOMEN: mild left upper quadrant abdominal pain that is only there inconsistently. No palpable organomegaly was noted. There is no palpable pulsatile mass. SKIN: Skin is clear with no lesions or rashes and otherwise unremarkable. NEUROLOGIC: Patient is alert and oriented x3. Cranial nerves II through XII are grossly intact. Motor and sensory are also intact. Normal speech, volume and content. Symmetrical smile. MUSCULOSKELETAL: Normal extremities with adequate strength and full range of motion. No lower extremity swelling or edema. No calf tenderness. LYMPHATICS: No significant lymphadenopathy is noted PSYCHIATRIC: Normal psychiatric evaluation. (Larry Perry) Course <Larry Perry - Last Filed: 03/16/17 18:53> <Cesar Walsh - Last Filed: 03/16/17 21:12> Vital Signs 03/16/17 03/16/17 03/16/17 18:07 19:08 20:40 Temperature 99.2 F 99.2 F Pulse Rate 133 H 97 79 Respiratory 28 H 18 18 Rate Blood Pressure 148/85 119/75 118/73 O2 Sat by Pulse 97 98 96 Oximetry - Reevaluation(s) Reevaluation #1: 03/16/17 19:42 Patient reevaluated by myself, Dr. Walsh. Patient resting comfortably in bed. Patient states he still has some abdominal discomfort and feels like there is gas in the abdomen. Abdomen is soft with moderate lateral lower abdominal tenderness. Patient states chest discomfort was only during emesis. No chest discomfort. No dyspnea. Computed tomography scan will be ordered. 03/16/17 21:11 Patient again reexamined and feeling much better following fluids. Patient is comfortable with discharge home. Patient is updated on results and need for follow-up. (Cesar Walsh) Medical Decision Making - Lab Data Result diagrams: 03/16/17 18:15 03/16/17 18:15 <Larry Perry - Last Filed: 03/16/17 18:53> - Lab Data Result diagrams: 03/16/17 18:15 03/16/17 18:15 <Cesar Walsh - Last Filed: 03/16/17 21:12> - Medical Decision Making EKG shows sinus tachycardia at 111 bpm NC interval is 124 QRS is 80 QT interval 322 QTC is 437. Patient's EKG shows no ST segment elevation or depression. Dr. Walsh be taking over care of this patient at 7 PM (Larry Perry) - Lab Data Lab Results 03/16/17 03/16/17 03/16/17 Range/Units 18:15 18:15 18:15 WBC 12.2 H (3.8-10.6) k/uL RBC 5.47 (4.30-5.90) m/uL Hgb 17.1 (13.0-17.5) gm/dL Hct 47.1 (39.0-53.0) % MCV 86.1 (80.0-100.0) fL MCH 31.3 (25.0-35.0) pg MCHC 36.3 (31.0-37.0) g/dL RDW 12.6 (11.5-15.5) % Plt Count 281 (150-450) k/uL Neutrophils % 87 % Lymphocytes % 5 % Monocytes % 5 % Eosinophils % 1 % Basophils % 0 % Neutrophils # 10.6 H (1.3-7.7) k/uL Lymphocytes # 0.6 L (1.0-4.8) k/uL Monocytes # 0.7 (0-1.0) k/uL Eosinophils # 0.1 (0-0.7) k/uL Basophils # 0.0 (0-0.2) k/uL Hyperchromasia Slight PT (9.0-12.0) sec INR (<1.2) APTT (22.0-30.0) sec Sodium 132 L (137-145) mmol/L Potassium 4.2 (3.5-5.1) mmol/L Chloride 102 (98-107) mmol/L Carbon Dioxide 15 L (22-30) mmol/L Anion Gap 15 mmol/L BUN 16 (9-20) mg/dL Creatinine 1.00 (0.66-1.25) mg/dL Est GFR (MDRD) Af Amer >60 (>60 ml/min/1.73 sqM) Est GFR (MDRD) Non-Af >60 (>60 ml/min/1.73 sqM) Glucose 126 H (74-99) mg/dL Plasma Lactic Acid Kushal (0.7-2.0) mmol/L Calcium 9.7 (8.4-10.2) mg/dL Total Bilirubin 1.3 (0.2-1.3) mg/dL AST 70 H (17-59) U/L ALT 111 H (21-72) U/L Alkaline Phosphatase 78 (38-126) U/L Total Creatine Kinase 77 (55-170) U/L CK-MB (CK-2) <0.2 (0.0-2.4) ng/mL CK-MB (CK-2) Rel Index Troponin I <0.012 (0.000-0.034) ng/mL Total Protein 8.0 (6.3-8.2) g/dL Albumin 4.5 (3.5-5.0) g/dL Urine Color Urine Appearance (Clear) Urine pH (5.0-8.0) Ur Specific [place] (1.001-1.035) Urine Protein (Negative) Urine Glucose (UA) (Negative) Urine Ketones (Negative) Urine Blood (Negative) Urine Nitrite (Negative) Urine Bilirubin (Negative) Urine Urobilinogen (<2.0) mg/dL Ur Leukocyte Esterase (Negative) Urine RBC (0-5) /hpf Urine WBC (0-5) /hpf Urine Mucus (None) /hpf Influenza Type A RNA (Not Detectd) Influenza Type B (PCR) (Not Detectd) 03/16/17 03/16/17 03/16/17 Range/Units 18:15 18:15 18:44 WBC (3.8-10.6) k/uL RBC (4.30-5.90) m/uL Hgb (13.0-17.5) gm/dL Hct (39.0-53.0) % MCV (80.0-100.0) fL MCH (25.0-35.0) pg MCHC (31.0-37.0) g/dL RDW (11.5-15.5) % Plt Count (150-450) k/uL Neutrophils % % Lymphocytes % % Monocytes % % Eosinophils % % Basophils % % Neutrophils # (1.3-7.7) k/uL Lymphocytes # (1.0-4.8) k/uL Monocytes # (0-1.0) k/uL Eosinophils # (0-0.7) k/uL Basophils # (0-0.2) k/uL Hyperchromasia PT 12.3 H (9.0-12.0) sec INR 1.2 H (<1.2) APTT 25.0 (22.0-30.0) sec Sodium (137-145) mmol/L Potassium (3.5-5.1) mmol/L Chloride (98-107) mmol/L Carbon Dioxide (22-30) mmol/L Anion Gap mmol/L BUN (9-20) mg/dL Creatinine (0.66-1.25) mg/dL Est GFR (MDRD) Af Amer (>60 ml/min/1.73 sqM) Est GFR (MDRD) Non-Af (>60 ml/min/1.73 sqM) Glucose (74-99) mg/dL Plasma Lactic Acid Kushal 2.1 H* (0.7-2.0) mmol/L Calcium (8.4-10.2) mg/dL Total Bilirubin (0.2-1.3) mg/dL AST (17-59) U/L ALT (21-72) U/L Alkaline Phosphatase (38-126) U/L Total Creatine Kinase (55-170) U/L CK-MB (CK-2) (0.0-2.4) ng/mL CK-MB (CK-2) Rel Index Troponin I (0.000-0.034) ng/mL Total Protein (6.3-8.2) g/dL Albumin (3.5-5.0) g/dL Urine Color Urine Appearance (Clear) Urine pH (5.0-8.0) Ur Specific [place] (1.001-1.035) Urine Protein (Negative) Urine Glucose (UA) (Negative) Urine Ketones (Negative) Urine Blood (Negative) Urine Nitrite (Negative) Urine Bilirubin (Negative) Urine Urobilinogen (<2.0) mg/dL Ur Leukocyte Esterase (Negative) Urine RBC (0-5) /hpf Urine WBC (0-5) /hpf Urine Mucus (None) /hpf Influenza Type A RNA Not Detected (Not Detectd) Influenza Type B (PCR) Not Detected (Not Detectd) 03/16/17 Range/Units 19:25 WBC (3.8-10.6) k/uL RBC (4.30-5.90) m/uL Hgb (13.0-17.5) gm/dL Hct (39.0-53.0) % MCV (80.0-100.0) fL MCH (25.0-35.0) pg MCHC (31.0-37.0) g/dL RDW (11.5-15.5) % Plt Count (150-450) k/uL Neutrophils % % Lymphocytes % % Monocytes % % Eosinophils % % Basophils % % Neutrophils # (1.3-7.7) k/uL Lymphocytes # (1.0-4.8) k/uL Monocytes # (0-1.0) k/uL Eosinophils # (0-0.7) k/uL Basophils # (0-0.2) k/uL Hyperchromasia PT (9.0-12.0) sec INR (<1.2) APTT (22.0-30.0) sec Sodium (137-145) mmol/L Potassium (3.5-5.1) mmol/L Chloride (98-107) mmol/L Carbon Dioxide (22-30) mmol/L Anion Gap mmol/L BUN (9-20) mg/dL Creatinine (0.66-1.25) mg/dL Est GFR (MDRD) Af Amer (>60 ml/min/1.73 sqM) Est GFR (MDRD) Non-Af (>60 ml/min/1.73 sqM) Glucose (74-99) mg/dL Plasma Lactic Acid Kushal (0.7-2.0) mmol/L Calcium (8.4-10.2) mg/dL Total Bilirubin (0.2-1.3) mg/dL AST (17-59) U/L ALT (21-72) U/L Alkaline Phosphatase (38-126) U/L Total Creatine Kinase (55-170) U/L CK-MB (CK-2) (0.0-2.4) ng/mL CK-MB (CK-2) Rel Index Troponin I (0.000-0.034) ng/mL Total Protein (6.3-8.2) g/dL Albumin (3.5-5.0) g/dL Urine Color Yellow Urine Appearance Clear (Clear) Urine pH 6.5 (5.0-8.0) Ur Specific [place] 1.022 (1.001-1.035) Urine Protein 1+ H (Negative) Urine Glucose (UA) Negative (Negative) Urine Ketones 3+ H (Negative) Urine Blood Trace H (Negative) Urine Nitrite Negative (Negative) Urine Bilirubin Negative (Negative) Urine Urobilinogen <2.0 (<2.0) mg/dL Ur Leukocyte Esterase Negative (Negative) Urine RBC 2 (0-5) /hpf Urine WBC 1 (0-5) /hpf Urine Mucus Rare H (None) /hpf Influenza Type A RNA (Not Detectd) Influenza Type B (PCR) (Not Detectd) Disposition <Larry Perry - Last Filed: 03/16/17 18:53> Time of Disposition: 21:12 <Cesar Walsh - Last Filed: 03/16/17 21:12> Clinical Impression: Nausea & vomiting, Dehydration Disposition: HOME SELF-CARE Condition: Stable Instructions: Acute Nausea and Vomiting (ED) Additional Instructions: please follow-up to in the next day or 2 for recheck. Return for increased pain, uncontrolled fevers, not tolerating fluids, worsening symptoms or other concerns. Prescriptions: Ondansetron Odt [Zofran Odt] 4 mg PO Q8HR PRN #10 tab PRN Reason: Nausea Referrals: Melissa Christie MD [Primary Care Provider] - 1-2 days
[2017-03-16] MEDS: SODIUM CHLORIDE 0.9% 500 ML IV SCH (18:38)
[2017-03-16 18:40] LABS: Basophils % (A) 0 %; CH 32.4; CHCM 37.8; Eosinophils # (A) 0.1 k/uL (0-0.7); Eosinophils % (A) 1 %; HCT 47.1 % (39.0-53.0); HDW 2.72; HGB 17.1 gm/dL (13.0-17.5); Hyperchromasia Slight; Luc # (Auto) 0.14; Luc % (Auto) 1; Lymphocytes # (A) 0.6 k/uL (1.0-4.8); Lymphocytes % (A) 5 %; MCH 31.3 pg (25.0-35.0); MCHC 36.3 g/dL (31.0-37.0); MCV 86.1 fL (80.0-100.0); Mean Platelet Volume 6.9; Monocytes # (A) 0.7 k/uL (0-1.0); Monocytes % (A) 5 %; Neutrophils # (A) 10.6 k/uL (1.3-7.7); Neutrophils % (A) 87 %; RBC 5.47 m/uL (4.30-5.90); RDW 12.6 % (11.5-15.5); WBC 12.2 k/uL (3.8-10.6); WBC (Perox) 11.53
[2017-03-16 18:44] LABS: ALT 111 U/L (21-72); AST 70 U/L (17-59); Alkaline Phosphatase 78 U/L (38-126); Anion Gap 15 mmol/L; Blood Urea Nitrogen 16 mg/dL (9-20); Calcium 9.7 mg/dL (8.4-10.2); Carbon Dioxide 15 mmol/L (22-30); Chloride 102 mmol/L (98-107); Glucose 126 mg/dL (74-99); INR 1.2 (<1.2); Non-African American GFR(MDRD) >60 (>60 ml/min/1.73 sqM); Potassium 4.2 mmol/L (3.5-5.1); Prothrombin Time 12.3 sec (9.0-12.0); Sodium 132 mmol/L (137-145); Total Bilirubin 1.3 mg/dL (0.2-1.3)
[2017-03-16] MEDS ORDERED: SODIUM CHLORIDE 0.9% 1,000 ML IV ONE (18:52)
[2017-03-16 18:58] LABS: Creatine Kinase 77 U/L (55-170)
[2017-03-16 19:09] VITALS: RESP 18
[2017-03-16 19:11] LABS: Creatine Kinase MB <0.2 ng/mL (0.0-2.4); Troponin I <0.012 ng/mL (0.000-0.034)
--- NOTE | 2017-03-16 19:16 | XR ---
EXAMINATION TYPE: XR chest 2V DATE OF EXAM: 03/16/2017 COMPARISON: 12/16/2015 HISTORY: Fever TECHNIQUE: Frontal and lateral views of the chest are obtained. FINDINGS: Heart and mediastinum are normal. Lungs are clear. Diaphragm is normal. There are chest le ads. Bony thorax appears normal. IMPRESSION: Normal chest. No change.
[2017-03-16 19:34] LABS: Appearance,Urine Clear (Clear); Bilirubin,Urine Negative (Negative); Glucose,Urine (UA) Negative (Negative); Ketones,Urine 3+ (Negative); Leukocyte Esterase,Urine Negative (Negative); Mucus,Urine Rare /hpf; Nitrite,Urine Negative (Negative); PH, Urine 6.5 (5.0-8.0); Particle Count 3210; Protein,Urine 1+ (Negative); RBC,Urine 2 /hpf (0-5); Specific Gravity,Urine 1.022 (1.001-1.035); UA Billing (MACRO vs. MICRO) MICRO; Urobilinogen,Urine <2.0 mg/dL (<2.0); WBC,Urine 1 /hpf (0-5)
[2017-03-16] MEDS ORDERED: SODIUM CHLORIDE 0.9% 1,000 ML IV STA (19:38)
[2017-03-16] MEDS ORDERED: RX INFO: IV CONTRAST WAS GIVEN 1 EACH MISC MISCELLANE PRN (19:43)
[2017-03-16] MEDS ORDERED: FAMOTIDINE 20 MG/2 ML VIAL IV STA (19:43)
--- NOTE | 2017-03-16 20:22 | CT ---
EXAMINATION TYPE: CT abdomen pelvis w con DATE OF EXAM: 03/16/2017 COMPARISON: 12/04/2014 HISTORY: patient complains of flu like symptoms, nausea, vomiting, diarrhea, and generalized abdomina l pain. CT DLP: 1842.7 mGycm Automated exposure control for dose reduction was used. TECHNIQUE: Helical acquisition of images was performed from the lung bases through the pelvis. CONTRAST: Performed without Oral Contrast and with IV Contrast, patient injected with 100 mL of Omnipaque 300. FINDINGS: Lung bases are clear. There is no pleural effusion. Heart size is normal. Liver appears normal. Bile ducts are not dilated. Gallbladder appears normal. There is no pancreatic mass. Spleen is enlarged and measures 14 cm. There is no adrenal mass. Kidneys show satisfactory contrast opacification. There is no hydronephrosi s. There is no retroperitoneal adenopathy. There is no ascites. I see no intestinal wall thickening. There are no dilated loops. Bladder is almost empty. There is no sign of a pelvic mass. Appendix appe ars normal. I see no bony destructive process. IMPRESSION: MILD SPLENOMEGALY. NO SIGN OF ACUTE ABDOMEN AND PELVIS. NO CHANGE.
[2017-03-16 20:42] VITALS: BP 118/73; PULSE 79
[2017-03-16 21:25] VITALS: TEMP 99
== END 2017-03-16 21:25 | disposition home or self-care (01) ==
LOC: EC 18:05
DX: E86.0 Dehydration (principal); R10.12 Left upper quadrant pain; K21.9 Gastro-esophageal reflux disease without esophagitis; Z86.19 Personal history of other infectious and parasitic diseases; F31.9 Bipolar disorder, unspecified; F41.9 Anxiety disorder, unspecified; F90.9 Attention-deficit hyperactivity disorder, unspecified type; F17.200 Nicotine dependence, unspecified, uncomplicated; Z79.899 Other long term (current) drug therapy; Z88.6 Allergy status to analgesic agent; Z91.030 Bee allergy status; Z88.8 Allergy status to other drugs, medicaments and biological substances
CPT/HCPCS: 36415; 93005; 80053; 82550; 82553; 83605; 84484; 85025; 85610; 85730; 81001; 87040; 87086; 87502; 71020; 74177; 99284; 96374; 96375; 96361 ×3; J2405; Q9967

== ENCOUNTER 2018-06-13 08:00 | Observation (INO) | payer OTHER ==
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
[2018-06-13 08:48] LABS: Basophils # (A) 0.1 k/uL (0-0.2); Basophils % (A) 1 %; Eosinophils # (A) 0.2 k/uL (0-0.7); Eosinophils % (A) 3 %; HCT 45.7 % (39.0-53.0); HGB 15.7 gm/dL (13.0-17.5); Lymphocytes # (A) 1.9 k/uL (1.0-4.8); Lymphocytes % (A) 23 %; MCH 30.3 pg (25.0-35.0); MCHC 34.3 g/dL (31.0-37.0); MCV 88.4 fL (80.0-100.0); Mean Platelet Volume 7.1; Monocytes # (A) 0.6 k/uL (0-1.0); Monocytes % (A) 7 %; Neutrophils # (A) 5.4 k/uL (1.3-7.7); Neutrophils % (A) 65 %; Platelet Count 172 k/uL (150-450); RBC 5.17 m/uL (4.30-5.90); WBC 8.2 k/uL (3.8-10.6)
--- NOTE | 2018-06-13 09:01 | XR ---
EXAMINATION TYPE: XR chest 2V DATE OF EXAM: 06/13/2018 COMPARISON: 03/16/2017 HISTORY: Chest pain TECHNIQUE: Frontal and lateral views of the chest are obtained. FINDINGS: There is no focal air space opacity. No evidence for pneumothorax. No pleural effusion. The cardiac silhouette size is within normal limits. The osseous structures are grossly intact. IMPRESSION: 1. No acute cardiopulmonary process.
[2018-06-13 09:02] LABS: Amylase 45 U/L (30-110); Anion Gap 11 mmol/L; Blood Urea Nitrogen 22 mg/dL (9-20); Calcium 9.8 mg/dL (8.4-10.2); Carbon Dioxide 23 mmol/L (22-30); Chloride 107 mmol/L (98-107); Glucose 112 mg/dL (74-99); Lipase 29 U/L (23-300); Sodium 141 mmol/L (137-145); Total Bilirubin 1.4 mg/dL (0.2-1.3)
[2018-06-13 09:03] LABS: D-Dimer 0.24 mg/L FEU (<0.60); Partial Thromboplastin Time 21.1 sec (22.0-30.0); Prothrombin Time 10.9 sec (9.0-12.0)
[2018-06-13 09:04] LABS: Creatine Kinase 172 U/L (55-170)
[2018-06-13 09:08] LABS: AST 48 U/L (17-59); Potassium 4.6 mmol/L (3.5-5.1)
[2018-06-13 09:09] LABS: ALT 53 U/L (21-72); Albumin 4.8 g/dL (3.5-5.0); Alkaline Phosphatase 65 U/L (38-126); Magnesium 2.1 mg/dL (1.6-2.3); Total Protein 8.5 g/dL (6.3-8.2)
[2018-06-13 09:17] LABS: Troponin I <0.012 ng/mL (0.000-0.034)
[2018-06-13] MEDS ORDERED: HEPARIN SODIUM,PORCINE 5,000 UNIT/ML 1 ML VIAL IV ONE (11:31)
[2018-06-13] MEDS ORDERED: NITROGLYCERIN SL TABS 0.4 MG TAB SUBLINGUAL PRN (11:31)
[2018-06-13] MEDS ORDERED: NICOTINE 21MG/24HR PATCH TRANSDERM STA (11:33)
--- NOTE | 2018-06-13 11:34 | ED ---
Medical Decision Making - Lab Data Result diagrams: 06/13/18 08:31 06/13/18 08:31 Lab Results 06/13/18 06/13/18 06/13/18 Range/Units 08:31 08:31 08:31 WBC 8.2 (3.8-10.6) k/uL RBC 5.17 (4.30-5.90) m/uL Hgb 15.7 (13.0-17.5) gm/dL Hct 45.7 (39.0-53.0) % MCV 88.4 (80.0-100.0) fL MCH 30.3 (25.0-35.0) pg MCHC 34.3 (31.0-37.0) g/dL RDW 14.0 (11.5-15.5) % Plt Count 172 (150-450) k/uL Neutrophils % 65 % Lymphocytes % 23 % Monocytes % 7 % Eosinophils % 3 % Basophils % 1 % Neutrophils # 5.4 (1.3-7.7) k/uL Lymphocytes # 1.9 (1.0-4.8) k/uL Monocytes # 0.6 (0-1.0) k/uL Eosinophils # 0.2 (0-0.7) k/uL Basophils # 0.1 (0-0.2) k/uL PT (9.0-12.0) sec INR (<1.2) APTT (22.0-30.0) sec D-Dimer (<0.60) mg/L FEU Sodium 141 (137-145) mmol/L Potassium 4.6 (3.5-5.1) mmol/L Chloride 107 (98-107) mmol/L Carbon Dioxide 23 (22-30) mmol/L Anion Gap 11 mmol/L BUN 22 H (9-20) mg/dL Creatinine 0.70 (0.66-1.25) mg/dL Est GFR (CKD-EPI)AfAm >90 (>60 ml/min/1.73 sqM) Est GFR (CKD-EPI)NonAf >90 (>60 ml/min/1.73 sqM) Glucose 112 H (74-99) mg/dL Calcium 9.8 (8.4-10.2) mg/dL Magnesium 2.1 (1.6-2.3) mg/dL Total Bilirubin 1.4 H (0.2-1.3) mg/dL AST 48 (17-59) U/L ALT 53 (21-72) U/L Alkaline Phosphatase 65 (38-126) U/L Total Creatine Kinase 172 H (55-170) U/L CK-MB (CK-2) 1.0 (0.0-2.4) ng/mL CK-MB (CK-2) Rel Index 0.6 Troponin I <0.012 (0.000-0.034) ng/mL NT-Pro-B Natriuret Pep pg/mL Total Protein 8.5 H (6.3-8.2) g/dL Albumin 4.8 (3.5-5.0) g/dL Amylase 45 (30-110) U/L Lipase 29 (23-300) U/L 06/13/18 06/13/18 Range/Units 08:31 08:31 WBC (3.8-10.6) k/uL RBC (4.30-5.90) m/uL Hgb (13.0-17.5) gm/dL Hct (39.0-53.0) % MCV (80.0-100.0) fL MCH (25.0-35.0) pg MCHC (31.0-37.0) g/dL RDW (11.5-15.5) % Plt Count (150-450) k/uL Neutrophils % % Lymphocytes % % Monocytes % % Eosinophils % % Basophils % % Neutrophils # (1.3-7.7) k/uL Lymphocytes # (1.0-4.8) k/uL Monocytes # (0-1.0) k/uL Eosinophils # (0-0.7) k/uL Basophils # (0-0.2) k/uL PT 10.9 (9.0-12.0) sec INR 1.0 (<1.2) APTT 21.1 L (22.0-30.0) sec D-Dimer 0.24 (<0.60) mg/L FEU Sodium (137-145) mmol/L Potassium (3.5-5.1) mmol/L Chloride (98-107) mmol/L Carbon Dioxide (22-30) mmol/L Anion Gap mmol/L BUN (9-20) mg/dL Creatinine (0.66-1.25) mg/dL Est GFR (CKD-EPI)AfAm (>60 ml/min/1.73 sqM) Est GFR (CKD-EPI)NonAf (>60 ml/min/1.73 sqM) Glucose (74-99) mg/dL Calcium (8.4-10.2) mg/dL Magnesium (1.6-2.3) mg/dL Total Bilirubin (0.2-1.3) mg/dL AST (17-59) U/L ALT (21-72) U/L Alkaline Phosphatase (38-126) U/L Total Creatine Kinase (55-170) U/L CK-MB (CK-2) (0.0-2.4) ng/mL CK-MB (CK-2) Rel Index Troponin I (0.000-0.034) ng/mL NT-Pro-B Natriuret Pep 83 pg/mL Total Protein (6.3-8.2) g/dL Albumin (3.5-5.0) g/dL Amylase (30-110) U/L Lipase (23-300) U/L Disposition Clinical Impression: Unstable angina pectoris, Chest pain, Smoking Disposition: ADMITTED IP TO THIS [facility] Condition: Stable Referrals: None,Stated [Primary Care Provider] - 1-2 days
[2018-06-13] MEDS ORDERED: HEPARIN SOD,PORK IN 0.45% NACL 25,000 UNIT in 0.45% NACL 1 250ML.BAG IV SCH (11:45)
[2018-06-13] MEDS ORDERED: SODIUM CHLORIDE 0.9% 1,000 ML IV SCH (11:45)
[2018-06-13] MEDS: LORazepam 2 MG/ML INJ IV PRN ×3 (14:55→22:19)
[2018-06-13] MEDS ORDERED: NALOXONE 0.4 MG/ML 1 ML VIAL IV PRN (15:29)
[2018-06-13 15:35] LABS: Amphetamine Screen,Urine Detected (NotDetected); Barbiturate Screen,Urine Not Detected (NotDetected); Benzodiazepines Screen,Urine Not Detected (NotDetected); Cocaine Screen,Urine Not Detected (NotDetected); Methadone Screen, Urine Not Detected (NotDetected); Opiate Screen,Urine Not Detected (NotDetected); Oxycodone Screen, Urine Not Detected (NotDetected); Phencyclidine Screen,Urine Not Detected (NotDetected); Tricyclic Antidepressant,Urine Not Detected (NotDetected); Urn Cannabinoid Scrn Detected (NotDetected)
[2018-06-13 15:37] LABS: Creatine Kinase 122 U/L (55-170)
[2018-06-13 15:50] LABS: Creatine Kinase MB 0.8 ng/mL (0.0-2.4); Troponin I <0.012 ng/mL (0.000-0.034)
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
[2018-06-13 16:31] VITALS: TEMP 98.3
[2018-06-13] MEDS: IBUPROFEN 600 MG TAB PO PRN (20:21)
[2018-06-13 21:40] LABS: Creatine Kinase 111 U/L (55-170)
[2018-06-13 21:53] LABS: Creatine Kinase MB 0.7 ng/mL (0.0-2.4); Troponin I <0.012 ng/mL (0.000-0.034)
[2018-06-13 22:04] LABS: Cholesterol 217 mg/dL (<200); HDL Cholesterol 65 mg/dL (40-60); LDL Cholesterol,Calculated 142 mg/dL (0-99); Triglycerides 50 mg/dL (<150)
[2018-06-14] MEDS: IBUPROFEN 600 MG TAB PO PRN (08:04)
[2018-06-14 08:07] VITALS: RESP 16
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
[2018-06-14] MEDS ORDERED: ASPIRIN 325 MG TAB PO SCH (09:00)
[2018-06-14] MEDS: LORazepam 2 MG/ML INJ IV PRN (09:00)
[2018-06-14 12:05] VITALS: BP 138/87; PULSE 68
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
== END 2018-06-14 16:35 | disposition home or self-care (01) ==
LOC: EC 08:00 → 1SOBS 11:34 → EEVIPCON 11:34 → 3SCARD 06-14 01:19
PROVIDERS: ADMIT Internal Medicine; ATTEND Internal Medicine
DX: F41.0 Panic disorder [episodic paroxysmal anxiety] (principal); F19.10 Other psychoactive substance abuse, uncomplicated; I48.0 Paroxysmal atrial fibrillation; I10 Essential (primary) hypertension; K21.9 Gastro-esophageal reflux disease without esophagitis; Z86.19 Personal history of other infectious and parasitic diseases; G89.4 Chronic pain syndrome; M25.562 Pain in left knee; F43.21 Adjustment disorder with depressed mood; F90.9 Attention-deficit hyperactivity disorder, unspecified type; I47.1 Supraventricular tachycardia; F41.1 Generalized anxiety disorder; F20.9 Schizophrenia, unspecified; F31.9 Bipolar disorder, unspecified; F17.210 Nicotine dependence, cigarettes, uncomplicated; T46.90 Poisoning by, adverse effect of and underdosing of unspecified agents primarily affecting the cardiovascular system; T43.96XA Underdosing of unspecified psychotropic drug, initial encounter; Z91.19 Patient's noncompliance with other medical treatment and regimen; Z88.5 Allergy status to narcotic agent; Z88.8 Allergy status to other drugs, medicaments and biological substances; Z91.030 Bee allergy status; Z91.5 Personal history of self-harm; Z87.19 Personal history of other diseases of the digestive system; Z82.49 Family history of ischemic heart disease and other diseases of the circulatory system; Z80.8 Family history of malignant neoplasm of other organs or systems; Z80.3 Family history of malignant neoplasm of breast; Z81.1 Family history of alcohol abuse and dependence; Z81.3 Family history of other psychoactive substance abuse and dependence
CPT/HCPCS: 96376 ×3; 96366 ×2; 96375; 96365; 99291; 36415; 93005; 85379; 83880; 80061; 80053; 82150; 82550; 82553; 83690; 83735; 84484; 85025; 85610; 85730; 80306; 71046; G0378 ×3; S4990; J2060 ×2; J1644 ×2

== ENCOUNTER 2018-06-25 16:55 | Emergency (ER) | payer OTHER ==
[2018-06-25] MEDS ORDERED: SODIUM CHLORIDE 0.9% 1,000 ML IV STA (18:00)
--- NOTE | 2018-06-25 18:03 | ED ---
General Adult HPI - General Chief complaint: Psychiatric Symptoms Stated complaint: mental health Time Seen by Provider: 06/25/18 17:51 Source: patient, RN notes reviewed, old records reviewed Mode of arrival: ambulatory Limitations: no limitations - History of Present Illness Initial comments: 37-year-old male presents for psychiatric evaluation. Patient states that he is felt the past, has had plan to commit suicide. 3 days ago patient states he took [id number] Tylenol and Benadryl and suicide attempt. He states today he felt that he would kill himself with a knife. Denies self injury today. He has had some mild abdominal pain, nausea and diarrhea over the past 24 hours. Past medical history of hepatitis C. He has had with depression and has been admitted for psychiatric purposes in the past. - Related Data Home Medications Medication Instructions Recorded Confirmed No Known Home Medications 06/25/18 06/25/18 Allergies Allergy/AdvReac Type Severity Reaction Status Date / Time tramadol HCl [From Ultram] Allergy Rash/Hives Verified 06/25/18 18:42 venom-honey bee Allergy Rash/Hives Verified 06/25/18 18:42 [bee venom (honey bee)] ziprasidone HCl [From Geodon] Allergy Swelling Verified 06/25/18 18:42 ziprasidone mesylate Allergy Swelling Verified 06/25/18 18:42 [From Geodon] Review of Systems ROS Statement: Those systems with pertinent positive or pertinent negative responses have been documented in the HPI. ROS Other: All systems not noted in ROS Statement are negative. Past Medical History Past Medical History: Atrial Fibrillation, Chest Pain / Angina, GERD/Reflux, Hypertension Additional Past Medical History / Comment(s): chronic pain syndrome, left knee pain, HEP C, SITUATIONAL DEPRESSION PAST SUICIDAL IDEATIONS, GENERALIZED ANXIETY. 8-14-15 HAD EPISODE OF SVT WAS STARTED ON CARDIZEM. History of Any Multi-Drug Resistant Organisms: None Reported Past Surgical History: Orthopedic Surgery, Tonsillectomy Additional Past Surgical History / Comment(s): LEFT KNEE with ACL and PCL reconstruction for a total of 4 surgeries. foreign body removal right hand. Foreign body removal left foot Past Anesthesia/Blood Transfusion Reactions: No Reported Reaction Past Psychological History: ADD/ADHD, Anxiety, Bipolar, Depression Smoking Status: Current every day smoker Past Alcohol Use History: None Reported Past Drug Use History: Cocaine, Marijuana, Methamphetamine, Opiates, Prescription Drug Abuse - Past Family History Mother Family Medical History: Cancer, Hypertension Additional Family Medical History / Comment(s): anxiety, depression. breast, brain, and bone CA. "Hardened Arteries" Father Family Medical History: Hypertension Additional Family Medical History / Comment(s): Hep B Brother(s) Family Medical History: No Reported History General Exam Limitations: no limitations General appearance: alert, in no apparent distress Head exam: Present: atraumatic, normocephalic Eye exam: Present: normal appearance, PERRL ENT exam: Present: normal exam Neck exam: Present: normal inspection. Absent: tenderness, meningismus Respiratory exam: Present: normal lung sounds bilaterally. Absent: respiratory distress, wheezes Cardiovascular Exam: Present: regular rate, normal rhythm GI/Abdominal exam: Present: soft, tenderness (Mild generalized tenderness). Absent: distended, guarding, rebound Extremities exam: Present: normal inspection, normal capillary refill. Absent: calf tenderness Neurological exam: Present: alert, oriented X3, CN II-XII intact. Absent: motor sensory deficit Psychiatric exam: Present: depressed, suicidal ideation Skin exam: Present: warm, dry, intact. Absent: cyanosis, diaphoretic Course Vital Signs 06/25/18 06/25/18 06/25/18 17:05 19:00 20:00 Temperature 97.6 F Pulse Rate 83 79 83 Respiratory 16 Rate Blood Pressure 139/91 133/86 122/67 O2 Sat by Pulse 99 99 99 Oximetry 06/25/18 06/25/18 21:00 23:00 Temperature Pulse Rate 85 81 Respiratory 22 Rate Blood Pressure 117/73 125/75 O2 Sat by Pulse 99 Oximetry - Reevaluation(s) Reevaluation #1: 06/25/18 20:01 Patient medically cleared awaiting EPS evaluation Reevaluation #2: 06/25/18 23:38 I did compare clinical certification for this patient, awaiting EPS disposition and placement EKG Findings - EKG Comments: EKG Findings:: EKG: Normal sinus rhythm, rate of 73, AK interval 144, QRS duration 88, QTC 418, no arrhythmia, no signs of ischemia Medical Decision Making - Medical Decision Making 37-year-old male evaluated for increasing depression, suicide attempt and suicidal ideation. Patient medically cleared, evaluated by EPS, will be transferred for further psychiatric treatment. - Lab Data Result diagrams: 06/25/18 18:45 06/25/18 18:45 Lab Results 06/25/18 06/25/18 06/25/18 Range/Units 18:45 18:45 18:45 WBC 10.1 (3.8-10.6) k/uL RBC 4.86 (4.30-5.90) m/uL Hgb 14.9 (13.0-17.5) gm/dL Hct 43.2 (39.0-53.0) % MCV 88.8 (80.0-100.0) fL MCH 30.6 (25.0-35.0) pg MCHC 34.4 (31.0-37.0) g/dL RDW 13.9 (11.5-15.5) % Plt Count 250 (150-450) k/uL Neutrophils % 69 % Lymphocytes % 16 % Monocytes % 10 % Eosinophils % 2 % Basophils % 1 % Neutrophils # 6.9 (1.3-7.7) k/uL Lymphocytes # 1.6 (1.0-4.8) k/uL Monocytes # 1.0 (0-1.0) k/uL Eosinophils # 0.2 (0-0.7) k/uL Basophils # 0.1 (0-0.2) k/uL PT (9.0-12.0) sec INR (<1.2) Sodium 138 (137-145) mmol/L Potassium 3.8 (3.5-5.1) mmol/L Chloride 103 (98-107) mmol/L Carbon Dioxide 29 (22-30) mmol/L Anion Gap 6 mmol/L BUN 17 (9-20) mg/dL Creatinine 0.70 (0.66-1.25) mg/dL Est GFR (CKD-EPI)AfAm >90 (>60 ml/min/1.73 sqM) Est GFR (CKD-EPI)NonAf >90 (>60 ml/min/1.73 sqM) Glucose 73 L (74-99) mg/dL Plasma Lactic Acid Kushal (0.7-2.0) mmol/L Calcium 9.1 (8.4-10.2) mg/dL Total Bilirubin 0.5 (0.2-1.3) mg/dL AST 43 (17-59) U/L ALT 44 (21-72) U/L Alkaline Phosphatase 92 (38-126) U/L Total Protein 6.9 (6.3-8.2) g/dL Albumin 4.0 (3.5-5.0) g/dL Lipase 36 (23-300) U/L Salicylates <1.0 mg/dL Urine Opiates Screen Not Detected (NotDetected) Ur Oxycodone Screen Not Detected (NotDetected) Urine Methadone Screen Not Detected (NotDetected) Ur Propoxyphene Screen Not Detected (NotDetected) Acetaminophen <10.0 ug/mL Ur Barbiturates Screen Not Detected (NotDetected) U Tricyclic Antidepress Not Detected (NotDetected) Ur Phencyclidine Scrn Not Detected (NotDetected) Ur Amphetamines Screen Detected H (NotDetected) U Methamphetamines Scrn Detected H (NotDetected) U Benzodiazepines Scrn Not Detected (NotDetected) Urine Cocaine Screen Not Detected (NotDetected) U Marijuana (THC) Screen Detected H (NotDetected) Serum Alcohol <10 mg/dL 06/25/18 06/25/18 Range/Units 18:45 18:45 WBC (3.8-10.6) k/uL RBC (4.30-5.90) m/uL Hgb (13.0-17.5) gm/dL Hct (39.0-53.0) % MCV (80.0-100.0) fL MCH (25.0-35.0) pg MCHC (31.0-37.0) g/dL RDW (11.5-15.5) % Plt Count (150-450) k/uL Neutrophils % % Lymphocytes % % Monocytes % % Eosinophils % % Basophils % % Neutrophils # (1.3-7.7) k/uL Lymphocytes # (1.0-4.8) k/uL Monocytes # (0-1.0) k/uL Eosinophils # (0-0.7) k/uL Basophils # (0-0.2) k/uL PT 10.5 (9.0-12.0) sec INR 1.0 (<1.2) Sodium (137-145) mmol/L Potassium (3.5-5.1) mmol/L Chloride (98-107) mmol/L Carbon Dioxide (22-30) mmol/L Anion Gap mmol/L BUN (9-20) mg/dL Creatinine (0.66-1.25) mg/dL Est GFR (CKD-EPI)AfAm (>60 ml/min/1.73 sqM) Est GFR (CKD-EPI)NonAf (>60 ml/min/1.73 sqM) Glucose (74-99) mg/dL Plasma Lactic Acid Kushal 1.2 (0.7-2.0) mmol/L Calcium (8.4-10.2) mg/dL Total Bilirubin (0.2-1.3) mg/dL AST (17-59) U/L ALT (21-72) U/L Alkaline Phosphatase (38-126) U/L Total Protein (6.3-8.2) g/dL Albumin (3.5-5.0) g/dL Lipase (23-300) U/L Salicylates mg/dL Urine Opiates Screen (NotDetected) Ur Oxycodone Screen (NotDetected) Urine Methadone Screen (NotDetected) Ur Propoxyphene Screen (NotDetected) Acetaminophen ug/mL Ur Barbiturates Screen (NotDetected) U Tricyclic Antidepress (NotDetected) Ur Phencyclidine Scrn (NotDetected) Ur Amphetamines Screen (NotDetected) U Methamphetamines Scrn (NotDetected) U Benzodiazepines Scrn (NotDetected) Urine Cocaine Screen (NotDetected) U Marijuana (THC) Screen (NotDetected) Serum Alcohol mg/dL Disposition Clinical Impression: Suicide attempt by multiple drug overdose, Suicidal thoughts, Depression Disposition: OTHER INSTITUTION NOT DEFINED Condition: Stable Is patient prescribed a controlled substance at d/c from ED?: No Referrals: Melissa Christie MD [Primary Care Provider] - 1-2 days Time of Disposition: 00:47 - Out of Hospital Transfer - Req. Specs Out of Hospital Transfer - Requested Specifics: Psychiatric Non-ICU
[2018-06-25 19:10] LABS: Basophils # (A) 0.1 k/uL (0-0.2); Basophils % (A) 1 %; Eosinophils # (A) 0.2 k/uL (0-0.7); Eosinophils % (A) 2 %; HCT 43.2 % (39.0-53.0); HGB 14.9 gm/dL (13.0-17.5); Lymphocytes # (A) 1.6 k/uL (1.0-4.8); Lymphocytes % (A) 16 %; MCH 30.6 pg (25.0-35.0); MCHC 34.4 g/dL (31.0-37.0); MCV 88.8 fL (80.0-100.0); Mean Platelet Volume 6.2; Monocytes % (A) 10 %; Neutrophils # (A) 6.9 k/uL (1.3-7.7); Neutrophils % (A) 69 %; Platelet Count 250 k/uL (150-450); RBC 4.86 m/uL (4.30-5.90); RDW 13.9 % (11.5-15.5); WBC 10.1 k/uL (3.8-10.6)
[2018-06-25 19:16] LABS: Prothrombin Time 10.5 sec (9.0-12.0)
[2018-06-25 19:17] LABS: Amphetamine Screen,Urine Detected (NotDetected); Barbiturate Screen,Urine Not Detected (NotDetected); Benzodiazepines Screen,Urine Not Detected (NotDetected); Cocaine Screen,Urine Not Detected (NotDetected); Methadone Screen, Urine Not Detected (NotDetected); Opiate Screen,Urine Not Detected (NotDetected); Phencyclidine Screen,Urine Not Detected (NotDetected); Tricyclic Antidepressant,Urine Not Detected (NotDetected); Urn Cannabinoid Scrn Detected (NotDetected)
[2018-06-25 19:18] LABS: Oxycodone Screen, Urine Not Detected (NotDetected)
[2018-06-25 19:20] LABS: ALT 44 U/L (21-72); AST 43 U/L (17-59); Acetaminophen <10.0 ug/mL; Alcohol <10 mg/dL; Alkaline Phosphatase 92 U/L (38-126); Anion Gap 6 mmol/L; Blood Urea Nitrogen 17 mg/dL (9-20); Calcium 9.1 mg/dL (8.4-10.2); Carbon Dioxide 29 mmol/L (22-30); Chloride 103 mmol/L (98-107); Glucose 73 mg/dL (74-99); Lipase 36 U/L (23-300); Potassium 3.8 mmol/L (3.5-5.1); Salicylate <1.0 mg/dL; Sodium 138 mmol/L (137-145); Total Bilirubin 0.5 mg/dL (0.2-1.3); Total Protein 6.9 g/dL (6.3-8.2)
[2018-06-26 02:24] VITALS: BP 132/84; PULSE 68; RESP 16; TEMP 97.7
== END 2018-06-26 02:27 | disposition short-term general hospital (02) ==
LOC: EC 16:55
DX: F31.30 Bipolar disorder, current episode depressed, mild or moderate severity, unspecified (principal); R45.851 Suicidal ideations; T39.1X2A Poisoning by 4-Aminophenol derivatives, intentional self-harm, initial encounter; T45.0X2A Poisoning by antiallergic and antiemetic drugs, intentional self-harm, initial encounter; R10.9 Unspecified abdominal pain; R11.0 Nausea; R19.7 Diarrhea, unspecified; F17.200 Nicotine dependence, unspecified, uncomplicated; Z88.5 Allergy status to narcotic agent; Z88.8 Allergy status to other drugs, medicaments and biological substances; Z91.030 Bee allergy status; Z86.19 Personal history of other infectious and parasitic diseases; Z87.19 Personal history of other diseases of the digestive system; Z81.8 Family history of other mental and behavioral disorders
CPT/HCPCS: 36415; 80053; 80306; 80320; 82075; 83520; 83605; 83690; 85025; 85610; 93005; 96360; 99285

== ENCOUNTER 2019-05-14 08:37 | Emergency (ER) | payer OTHER ==
[2019-05-14 08:41] VITALS: BP 151/95; PULSE 81; RESP 20; TEMP 97.8
[2019-05-14] MEDS ORDERED: ACET/COD 300 MG/30 MG STARTER PACK 6 TAB BTL PO STA (08:54)
--- NOTE | 2019-05-14 08:58 | ED ---
ENT HPI - General Chief complaint: Dental/Oral Stated complaint: dental pain Time Seen by Provider: 05/14/19 08:43 Source: patient, RN notes reviewed Mode of arrival: ambulatory Limitations: no limitations - History of Present Illness Initial comments: 38-year-old male presents emergency Department chief complaint dental pain. He's had increasing pain in the the left lower aspect started last night. He has very poor dentition is appointment with his dentist on Friday. No fevers or chills no trismus no neck pain or neck stiffness. - Related Data Previous Rx's Medication Instructions Recorded Ibuprofen [Motrin] 600 mg PO Q8HR PRN #30 tab 05/14/19 Penicillin V Potassium [Pen Vee K] 500 mg PO QID #40 tablet 05/14/19 Allergies Allergy/AdvReac Type Severity Reaction Status Date / Time tramadol HCl [From [facility]] Allergy Rash/Hives Verified 05/14/19 08:41 venom-honey bee Allergy Rash/Hives Verified 05/14/19 08:41 [bee venom (honey bee)] ziprasidone HCl [From [facility]] Allergy Swelling Verified 05/14/19 08:41 ziprasidone mesylate Allergy Swelling Verified 05/14/19 08:41 [From [facility]] Review of Systems ROS Statement: Those systems with pertinent positive or pertinent negative responses have been documented in the HPI. ROS Other: All systems not noted in ROS Statement are negative. Past Medical History Past Medical History: Atrial Fibrillation, Chest Pain / Angina, GERD/Reflux, Hypertension Additional Past Medical History / Comment(s): chronic pain syndrome, left knee pain, HEP C, SITUATIONAL DEPRESSION PAST SUICIDAL IDEATIONS, GENERALIZED ANXIETY. 8-14-15 HAD EPISODE OF SVT WAS STARTED ON CARDIZEM. History of Any Multi-Drug Resistant Organisms: None Reported Past Surgical History: Orthopedic Surgery, Tonsillectomy Additional Past Surgical History / Comment(s): LEFT KNEE with ACL and PCL reconstruction for a total of 4 surgeries. foreign body removal right hand. Foreign body removal left foot Past Anesthesia/Blood Transfusion Reactions: No Reported Reaction Past Psychological History: ADD/ADHD, Anxiety, Bipolar, Depression Smoking Status: Current every day smoker Past Alcohol Use History: None Reported Past Drug Use History: Cocaine, Marijuana, Methamphetamine, Opiates, Prescription Drug Abuse - Past Family History Mother Family Medical History: Cancer, Hypertension Additional Family Medical History / Comment(s): anxiety, depression. breast, brain, and bone CA. "Hardened Arteries" Father Family Medical History: Hypertension Additional Family Medical History / Comment(s): Hep B Brother(s) Family Medical History: No Reported History General Exam Limitations: no limitations General appearance: alert, in no apparent distress Head exam: Present: atraumatic, normocephalic, normal inspection Eye exam: Present: normal appearance, PERRL, EOMI. Absent: scleral icterus, conjunctival injection, periorbital swelling ENT exam: Present: mucous membranes moist, TM's normal bilaterally, normal external ear exam. Absent: normal oropharynx (Edentulous multiple dental caries dental fractures, no drainable abscess mild swelling left lower) Neck exam: Present: normal inspection, full ROM. Absent: tenderness, meningismus, lymphadenopathy Respiratory exam: Present: normal lung sounds bilaterally. Absent: respiratory distress, wheezes, rales, rhonchi, stridor Cardiovascular Exam: Present: regular rate, normal rhythm, normal heart sounds. Absent: systolic murmur, diastolic murmur, rubs, gallop, clicks Course Vital Signs 05/14/19 08:39 Temperature 97.8 F Pulse Rate 81 Respiratory 20 Rate Blood Pressure 151/95 O2 Sat by Pulse 100 Oximetry Medical Decision Making - Medical Decision Making Patient was started on Pen-Vee K for Dental infection probable early dental abscess on drainable at this time. Patient will follow-up with his dentist appointment and return for any worsening symptoms. Disposition Clinical Impression: Pain, dental, Dental infection Disposition: HOME SELF-CARE Condition: Stable Instructions (If sedation given, give patient instructions): Toothache (ED) Additional Instructions: Please return to the Emergency Department if symptoms worsen or any other concerns. Prescriptions: Ibuprofen [Motrin] 600 mg PO Q8HR PRN #30 tab PRN Reason: Pain Penicillin V Potassium [Pen Vee K] 500 mg PO QID #40 tablet Is patient prescribed a controlled substance at d/c from ED?: No Referrals: Jeff England MD [Primary Care Provider] - 1-2 days Time of Disposition: 08:57
== END 2019-05-14 09:05 | disposition home or self-care (01) ==
LOC: EC 08:37
DX: K04.7 Periapical abscess without sinus (principal); K02.9 Dental caries, unspecified; K08.409 Partial loss of teeth, unspecified cause, unspecified class; S02.5XXA Fracture of tooth (traumatic), initial encounter for closed fracture; F17.200 Nicotine dependence, unspecified, uncomplicated; Z88.5 Allergy status to narcotic agent; Z88.8 Allergy status to other drugs, medicaments and biological substances; Z91.030 Bee allergy status; X58.XXXA Exposure to other specified factors, initial encounter
CPT/HCPCS: 99282

== ENCOUNTER 2021-02-28 17:25 | Inpatient (IN) | payer MEDICAID, OTHER ==
--- NOTE | 2021-02-28 19:06 | ED ---
General Adult HPI - General Chief complaint: Psychiatric Symptoms Stated complaint: Mental Health Time Seen by Provider: 02/28/21 18:10 Source: patient, RN notes reviewed, old records reviewed Mode of arrival: ambulatory Limitations: no limitations - History of Present Illness Initial comments: Patient is a 40-year-old male with past medical history remarkable for polysubstance abuse, hypertension, GERD, depression, anxiety. Patient was sent by his psychiatrist for evaluation over concern for suicidal ideation. Patient states has been under more stress lately, particularly from his fiance. He states he feels like he wants to hurt her but not kill her. He states that she is giving him thoughts of wanting to hurt himself, and she is also hearing voices telling him want to hurt himself. He states he does have a plan, finding a knife and cutting his own throat. Denies any attempts. Denies any medical complaints at this time, include chest pain, shortness breath, abdominal pain, nausea, vomiting. Denies any injuries at this time. Patient brought himself to the emergency department for evaluation. He denies any visual or auditory murguia llucinations, but states he hears his own voice telling him to hurt himself. - Related Data Home Medications Medication Instructions Recorded Confirmed Buprenorphine HCl/Naloxone HCl 0.5 film SL HS 02/28/21 02/28/21 [Suboxone 8 mg-2 mg Sl Film] Buprenorphine HCl/Naloxone HCl 1 film SL DAILY 02/28/21 02/28/21 [Suboxone 8 mg-2 mg Sl Film] cloNIDine HCL [Catapres] 0.3 mg PO BID 02/28/21 02/28/21 Allergies Allergy/AdvReac Type Severity Reaction Status Date / Time tramadol HCl [From [facility]] Allergy Rash/Hives Verified 02/28/21 20:35 venom-honey bee Allergy Rash/Hives Verified 02/28/21 20:35 [bee venom (honey bee)] ziprasidone HCl [From Ge[facility]] Allergy Swelling Verified 02/28/21 20:35 ziprasidone mesylate Allergy Swelling Verified 02/28/21 20:35 [From Geodon] Review of Systems ROS Statement: Those systems with pertinent positive or pertinent negative responses have been documented in the HPI. Review of Systems: CONST: Denies fever EYES: Denies blurry vision ENT: Denies nasal congestion C/V: Denies Chest pain RESP: Denies shortness of breath GI: Denies abdominal pain : Denies dysuria SKIN: Denies rash. MSK: Denies joint pain. NEURO: Denies headache PSYCH: Denies homicidal ideations/plans/attempts. He endorses suicidal ideation and plan, but denies attempt. Denies visual or auditory hallucinations. ROS Other: All systems not noted in ROS Statement are negative. Past Medical History Past Medical History: Atrial Fibrillation, Chest Pain / Angina, GERD/Reflux, Hypertension Additional Past Medical History / Comment(s): chronic pain syndrome, left knee pain, HEP C, SITUATIONAL DEPRESSION PAST SUICIDAL IDEATIONS, GENERALIZED ANXIETY. 8-15 HAD EPISODE OF SVT WAS STARTED ON CARDIZEM. History of Any Multi-Drug Resistant Organisms: None Reported Past Surgical History: Orthopedic Surgery, Tonsillectomy Additional Past Surgical History / Comment(s): LEFT KNEE with ACL and PCL reconstruction for a total of 4 surgeries. foreign body removal right hand. Foreign body removal left foot Past Anesthesia/Blood Transfusion Reactions: No Reported Reaction Past Psychological History: ADD/ADHD, Anxiety, Bipolar, Depression Smoking Status: Current every day smoker Past Alcohol Use History: None Reported Past Drug Use History: Cocaine, Marijuana, Methamphetamine, Opiates, Prescription Drug Abuse - Past Family History Mother Family Medical History: Cancer, Hypertension Additional Family Medical History / Comment(s): anxiety, depression. breast, brain, and bone CA. "Hardened Arteries" Father Family Medical History: Hypertension Additional Family Medical History / Comment(s): Hep B Brother(s) Family Medical History: No Reported History General Exam - General Exam Comments Initial Comments: General: Appears in no acute distress. HEAD: Normal with no signs of head trauma. EYES: PERRLA, EOMI, conjunctiva normal, no discharge. Pupils are 3 mm and equal bilaterally. ENT: Hearing grossly intact, normal oropharynx. RESPIRATORY: Clear breath sounds bilaterally. No wheezes, rales, or rhonchi. C/V: Regular rate and rhythm. S1 and S2 auscultated, no edema, peripheral pulses 2+ and intact throughout ABD: Abd is soft, nontender, nondistended EXT: Normal range of motion, no obvious deformity SKIN: No rashes or lesions observed on exposed skin. NEURO: Alert and oriented x 4. Cranial nerves II-XII intact. No focal sensory or strength deficits. Limitations: no limitations Course Vital Signs 02/28/21 02/28/21 03/01/21 18:03 22:17 02:03 Temperature 98.2 F Pulse Rate 101 H 66 80 Pulse Rate [ Right Sitting Radial] Respiratory 20 18 16 Rate Blood Pressure 176/104 146/87 163/90 Blood Pressure [Right Arm Sitting] O2 Sat by Pulse 96 98 98 Oximetry 03/01/21 02:12 Temperature 96.8 F L Pulse Rate Pulse Rate [ 75 Right Sitting Radial] Respiratory 18 Rate Blood Pressure Blood Pressure 145/89 [Right Arm Sitting] O2 Sat by Pulse 98 Oximetry Medical Decision Making - Medical Decision Making Based on the patient's presentation and physical exam, I do believe that he requires psychiatric evaluation at this time. UDS and breathalyzer alcohol level will be obtained. UDS will be consulted. BAT level was 0. UDS is pending. This time patient is medically cleared for evaluation by psychiatry. Disposition is per any psychiatric evaluation. Patient was signed out to the emergency department team under Dr. Gaston pending psychiatric evaluation. Psychiatry deemed the patient met inpatient criteria. Patient was admitted in stable condition. - Lab Data Lab Results 02/28/21 03/01/21 Range/Units 20:00 00:36 Urine Opiates Screen Not Detected (NotDetected) Ur Oxycodone Screen Not Detected (NotDetected) Urine Methadone Screen Not Detected (NotDetected) Ur Propoxyphene Screen Not Detected (NotDetected) Ur Barbiturates Screen Not Detected (NotDetected) U Tricyclic Antidepress Not Detected (NotDetected) Ur Phencyclidine Scrn Not Detected (NotDetected) Ur Amphetamines Screen Not Detected (NotDetected) U Methamphetamines Scrn Not Detected (NotDetected) U Benzodiazepines Scrn Not Detected (NotDetected) Urine Cocaine Screen Not Detected (NotDetected) U Marijuana (THC) Screen Detected H (NotDetected) Coronavirus (PCR) Not Detected (Not Detectd) Disposition Clinical Impression: Suicidal ideation, Encounter for psychiatric assessment Disposition: ADMITTED IP TO THIS HOSP Condition: Stable
[2021-02-28 20:24] LABS: Amphetamine Screen,Urine Not Detected (NotDetected); Barbiturate Screen,Urine Not Detected (NotDetected); Benzodiazepines Screen,Urine Not Detected (NotDetected); Cocaine Screen,Urine Not Detected (NotDetected); Methadone Screen, Urine Not Detected (NotDetected); Opiate Screen,Urine Not Detected (NotDetected); Oxycodone Screen, Urine Not Detected (NotDetected); Phencyclidine Screen,Urine Not Detected (NotDetected); Tricyclic Antidepressant,Urine Not Detected (NotDetected); Urn Cannabinoid Scrn Detected (NotDetected)
[2021-02-28] MEDS ORDERED: IBUPROFEN 600 MG TAB PO STA (21:27)
[2021-03-01] MEDS ORDERED: LORazepam 1 MG TAB PO PRN (01:49)
[2021-03-01] MEDS ORDERED: MAGNESIUM HYDROXIDE 2,400 MG/10 ML CUP PO PRN (01:49)
[2021-03-01] MEDS ORDERED: LORazepam 2 MG/ML INJ IM PRN (01:52)
[2021-03-01] MEDS ORDERED: haloperidoL 5 MG TAB PO PRN (01:53)
[2021-03-01] MEDS ORDERED: HALOPERIDOL LACTATE 5 MG/ML 1 ML VIAL IM PRN (01:53)
[2021-03-01] MEDS: cloNIDine HCL 0.1 MG TAB PO SCH ×2 (09:01→21:07)
[2021-03-01] MEDS: NON FORMULARY DRUG (Buprenorphine Hcl/Naloxone Hcl [Suboxone 8 Mg-2 Mg Sl Film] 1 EACH Fil SUBLINGUAL SCH ×2 (09:02→21:03)
[2021-03-01] MEDS: NICOTINE 14MG/24HR PATCH TRANSDERM SCH (09:02)
[2021-03-01] MEDS: DULoxetine HCL 30 MG CAPSULE.DR PO SCH (11:49)
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
[2021-03-01] MEDS ORDERED: MIRTAZAPINE 15 MG TAB PO SCH (21:00)
[2021-03-01] MEDS: IBUPROFEN 600 MG TAB PO PRN (21:06)
[2021-03-01] MEDS: LORazepam 1 MG TAB PO PRN (21:09)
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
[2021-03-02 08:14] LABS: ALT 47 U/L (4-49); AST 51 U/L (17-59); African American GFR (CKD) >90 (>60 ml/min/1.73 sqM); Albumin 4.5 g/dL (3.5-5.0); Alkaline Phosphatase 58 U/L (38-126); Anion Gap 7 mmol/L; Blood Urea Nitrogen 16 mg/dL (9-20); Calcium 10.2 mg/dL (8.4-10.2); Carbon Dioxide 29 mmol/L (22-30); Chloride 105 mmol/L (98-107); Glucose 101 mg/dL (74-99); Non-African American GFR(CKD) >90 (>60 ml/min/1.73 sqM); Potassium 5.4 mmol/L (3.5-5.1); Sodium 141 mmol/L (137-145); Total Protein 8.2 g/dL (6.3-8.2)
[2021-03-02] MEDS: NICOTINE 14MG/24HR PATCH TRANSDERM SCH (08:15)
[2021-03-02] MEDS: DULoxetine HCL 30 MG CAPSULE.DR PO SCH (08:15)
[2021-03-02] MEDS: cloNIDine HCL 0.1 MG TAB PO SCH ×2 (08:15→20:56)
[2021-03-02] MEDS: ACETAMINOPHEN TAB 325 MG TAB PO PRN (08:16)
[2021-03-02] MEDS: LORazepam 1 MG TAB PO PRN ×2 (08:16→20:57)
[2021-03-02] MEDS: NON FORMULARY DRUG (Buprenorphine Hcl/Naloxone Hcl [Suboxone 8 Mg-2 Mg Sl Film] 1 EACH Fil SUBLINGUAL SCH ×2 (08:25→21:05)
[2021-03-02] MEDS ORDERED: diphenhydrAMINE 25 MG CAP PO PRN (10:26)
[2021-03-02] MEDS ORDERED: hydrOXYzine pamoate 25 MG CAP PO PRN (10:27)
--- NOTE | 2021-03-02 10:35 | P.PN ---
Progress Note - Text Progress Note Date: 03/02/21 Interval History: Patient was seen lying in his bed today and was directable and agreeable to sp eak with advertising copywriter in the office. Patient appears to be fairly irritable today and explained that he is feeling "dope sick" and was arguing with advertising copywriter about his medications. He continues to request Suboxone and was getting agitated when advertising copywriter explained that she needed to be brought in from an outside pharmacy as we do not socket in this hospital. Patient rambled on about how "this place sucks and doesnt know how to take care of people". He claims that he is feeling "worse than yesterday". He states that he had a difficult time sleeping last night and the person that was doing rounds [facility]. He Is Describing Anxiety Today. Patient has been taking his medications. He ended the interview early today as he was so agitated and states that "there is no point in even talking to you" and was hostile towards advertising copywriter and stormed out of the office and slammed the door. Mental Status Exam: General Appearance: Patient appears to be thin, balding, stated age is alert, irritable and agitated. Behavior: Patient is seated and was irritable and agitated. Demanding. visibly upset Speech: Patient's speech is fluent and nonpressured. loud at times Mood/Affect: Mood is "worse than yesterday", affect is congruent Suicidality/Homicidality: Patient denies having any suicidal or homicidal ideation intent or plan. Perceptions: Patient denies any visual hallucinations and denies any auditory hallucinations Though content/process: Focused on his medications. Demanding. Memory and concentration: AOX3, grossly intact for the purposes of this session Judgment and insight: poor/impulsive Assessment Major depressive disorder, recurrent, severe without psychotic features Anxiety disorder unspecified Cluster B personality History of opiate abuse History of methamphetamine abuse Cannabis use disorder mild Nicotine dependence Plan: -Patient continues to meet criteria for inpatient psychiatric admission for symptom stabilization and safety. Patient has signed adult voluntary form and medication consent and was placed in patient's chart. -Medications: Increase Cymbalta to 60 mg daily for mood/anxiety. Increase Remeron to 30 mg daily at bedtime for insomnia/mood/appetite. Patient is on Suboxone prescribed at [facility] however will not receive this on the unit and will need to obtain it as an outpatient. added vistaril prn for anxiety and also added benadryl 25 mg qhs prn for insomnia. clonidine 0.3 mgg bid for htn and opioid w/d sx. dicyclomine prn for dyspepsia. -When necessary Ativan and Haldol for agitation/aggression. -NRT - nicotine patch -SW on board for discharge planning. Encouraged the patient to participate in milieu. likely discharge early next week if patient improves over the weekend.
[2021-03-02] MEDS: MIRTAZAPINE 15 MG TAB PO SCH (20:56)
[2021-03-02] MEDS: IBUPROFEN 600 MG TAB PO PRN (20:56)
[2021-03-02] MEDS: MAG HYDROX/AL HYDROX/SIMETH 30 ML CUP PO PRN (20:57)
[2021-03-03] MEDS: NON FORMULARY DRUG (Buprenorphine Hcl/Naloxone Hcl [Suboxone 8 Mg-2 Mg Sl Film] 1 EACH Fil SUBLINGUAL SCH ×2 (07:20→07:59)
[2021-03-03] MEDS: cloNIDine HCL 0.1 MG TAB PO SCH ×2 (07:58→20:59)
[2021-03-03] MEDS: LORazepam 1 MG TAB PO PRN ×2 (07:59→20:59)
[2021-03-03] MEDS: DULoxetine HCL 60 MG CAPSULE.DR PO SCH (07:59)
[2021-03-03] MEDS: NICOTINE 14MG/24HR PATCH TRANSDERM SCH (07:59)
[2021-03-03] MEDS: IBUPROFEN 600 MG TAB PO PRN ×2 (07:59→20:59)
[2021-03-03 08:37] LABS: African American GFR (CKD) >90 (>60 ml/min/1.73 sqM); Anion Gap 7 mmol/L; Blood Urea Nitrogen 17 mg/dL (9-20); Calcium 10.2 mg/dL (8.4-10.2); Carbon Dioxide 27 mmol/L (22-30); Chloride 106 mmol/L (98-107); Glucose 110 mg/dL (74-99); Non-African American GFR(CKD) >90 (>60 ml/min/1.73 sqM); Potassium 5.6 mmol/L (3.5-5.1); Sodium 140 mmol/L (137-145)
--- NOTE | 2021-03-03 13:14 | P.PN ---
Progress Note - Text Progress Note Date: 03/03/21 Interval history: Patient was seen wandering the hallways and was directable and agreeable to speak with policy writer typist. The patient continues to be upset about not receiving any Suboxone on this unit. Patient is very fixated on receiving benzodiazepine medication or opiate agonist therapy. We discussed at length his elevated anxiety and the patient was able to calm down during the interview and became less demanding as interview continued. He is currently not reporting any s uicidal or homicidal ideation, intention, and/or plan. He is not reporting any auditory or visual hallucinations. He continues to express feeling hopeless and helpless. He has been adherent with his medications is not endorsing any significant side effects at this time. Mental status exam: General Appearance: Patient appears to be stated age is alert, directable, and cooperative. Initially demanding but later cooperative. Behavior: Elevated psychomotor activity with intermittent eye contact. Speech: Patient's speech is rapid, difficult to interrupt. Mood/Affect: Mood is very anxious, affect is expansive and histrionic. Suicidality/Homicidality: Patient denies having any suicidal or homicidal ideation intent or plan. Perceptions: Patient denies any auditory or visual hallucinations. Though content/process: There is no evidence of any delusional thought content and thought process is linear and goal-directed. Memory and concentration: AOX3, grossly intact for the purposes of this session Judgment and insight: improving mildly Vital Signs Temp 97.3 F L 03/03/21 07:04 Pulse 108 H 03/03/21 08:06 Resp 16 03/03/21 07:04 BP 163/98 03/03/21 08:06 Pulse Ox 98 03/02/21 08:24 Assessment/Plan: Continue with current diagnosis. Patient continues to meet criteria for inpatient psychiatric admission for symptom stabilization and safety. Cymbalta will be increased to 60 mg daily to address depression/pain symptoms. Otherwise no changes to his psychiatric medication regimen at this time. Monitor for medication compliance and for any psychotropic medication side effects. Will continue to monitor ongoing response to treatment. Encouraged participation in milieu.
[2021-03-03] MEDS: DICYCLOMINE 20 MG TAB PO PRN (18:00)
[2021-03-03] MEDS: MAG HYDROX/AL HYDROX/SIMETH 30 ML CUP PO PRN (20:59)
[2021-03-03] MEDS: MIRTAZAPINE 15 MG TAB PO SCH (20:59)
[2021-03-03] MEDS ORDERED: SODIUM POLYSTYRENE SULFONATE 15 GM/60 ML BOTTLE PO STA (23:41)
[2021-03-04] MEDS: NICOTINE 14MG/24HR PATCH TRANSDERM SCH (08:05)
[2021-03-04] MEDS: NON FORMULARY DRUG (Buprenorphine Hcl/Naloxone Hcl [Suboxone 8 Mg-2 Mg Sl Film] 1 EACH Fil SUBLINGUAL SCH ×2 (08:06→20:09)
[2021-03-04] MEDS: DULoxetine HCL 60 MG CAPSULE.DR PO SCH (08:06)
[2021-03-04] MEDS: cloNIDine HCL 0.1 MG TAB PO SCH ×2 (08:06→20:55)
[2021-03-04] MEDS: LORazepam 1 MG TAB PO PRN ×2 (08:07→20:56)
[2021-03-04] MEDS: ACETAMINOPHEN TAB 325 MG TAB PO PRN ×3 (08:07→20:55)
--- NOTE | 2021-03-04 10:55 | P.PN ---
Progress Note - Text Progress Note Date: 03/04/21 Interval history: Patient was seen resting in bed and was directable and agreeable to speak with television writer. The patient continues to feel like "no one is helping me." He expresses that his physical health is deteriorating as he addresses his mental health because he is not receiving any Suboxone or some salt here. He remains fixated on receiving these medications. He states that he is experiencing significant withdrawal symptoms, in particular diarrhea. As this provider attempts to engage in the psychiatric interview with this patient, the patient becomes very angry with this provider. He was informed not to lash out at this provider to which he terminated the interview angrily. Mental status exam: General Appearance: Patient appears to be stated age is alert, not directable directable, and uncooperative. Behavior: Psychomotor agitation is evident. Patient is poor eye contact and terminates the interview. Mood/Affect: Mood is anxious and irritable. Affect is irritable, angry, and expansive. Suicidality/Homicidality: Unable to assess as the patient terminated the interview. Perceptions: Unable to assess as the patient terminated the interview. Though content/process: Unable to assess as the patient terminated the interview. Fixated on medications. Memory and concentration: AOX3, grossly intact for the purposes of this session Judgment and insight: Very poor. Vital Signs Temp 98.2 F 03/04/21 06:41 Pulse 102 H 03/04/21 08:00 Resp 16 03/04/21 06:41 BP 156/88 03/04/21 08:00 Pulse Ox 98 03/02/21 08:24 Assessment/Plan: Continue with current diagnosis. Patient continues to meet criteria for inpatient psychiatric admission for symptom stabilization and safety.Patient will be maintained on current psychotropic medication regimen with the addition of 30 mg of Cymbalta at bedtime to address his depression and anxiety. Patient refused to participate in therapeutic discussion with this provider today. Monitor for medication compliance and for any psychotropic medication side effects. Will continue to monitor ongoing response to treatment. Encouraged participation in milieu.
[2021-03-04] MEDS ORDERED: SODIUM POLYSTYRENE SULFONATE 15 GM/60 ML BOTTLE PO STA (19:54)
[2021-03-04] MEDS: MIRTAZAPINE 15 MG TAB PO SCH (20:55)
[2021-03-04] MEDS ORDERED: DULoxetine HCL 30 MG CAPSULE.DR PO SCH (21:00)
[2021-03-04] MEDS: DICYCLOMINE 20 MG TAB PO PRN (21:32)
[2021-03-05] MEDS: NICOTINE 14MG/24HR PATCH TRANSDERM SCH (08:02)
[2021-03-05] MEDS: cloNIDine HCL 0.1 MG TAB PO SCH ×2 (08:03→21:14)
[2021-03-05] MEDS: DULoxetine HCL 60 MG CAPSULE.DR PO SCH (08:03)
[2021-03-05 08:04] LABS: African American GFR (CKD) >90 (>60 ml/min/1.73 sqM); Anion Gap 7 mmol/L; Blood Urea Nitrogen 14 mg/dL (9-20); Calcium 9.8 mg/dL (8.4-10.2); Carbon Dioxide 29 mmol/L (22-30); Chloride 105 mmol/L (98-107); Glucose 109 mg/dL (74-99); Non-African American GFR(CKD) >90 (>60 ml/min/1.73 sqM); Potassium 4.8 mmol/L (3.5-5.1); Sodium 141 mmol/L (137-145)
[2021-03-05] MEDS: ACETAMINOPHEN TAB 325 MG TAB PO PRN ×2 (08:05→21:15)
[2021-03-05] MEDS: LORazepam 1 MG TAB PO PRN (08:05)
[2021-03-05] MEDS: NON FORMULARY DRUG (Buprenorphine Hcl/Naloxone Hcl [Suboxone 8 Mg-2 Mg Sl Film] 1 EACH Fil SUBLINGUAL SCH ×2 (08:11→21:25)
[2021-03-05] MEDS ORDERED: LORazepam 0.5 MG TAB PO PRN (09:35)
[2021-03-05] MEDS ORDERED: IBUPROFEN 600 MG TAB PO PRN (09:38)
--- NOTE | 2021-03-05 10:06 | P.PN ---
Progress Note - Text Progress Note Date: 03/05/21 Interval History: Patient was seen lying in his bed today and was directable and agreeable to sp eak with teletypewriter installer in the office. Patient appears to be calmer and more directable during conversation today. He continues to state that he is feeling like he is going through withdrawals and states that last time he went through "71 days of withdrawals" from his Suboxone. He claims that he feels the nurses have not been helping him and was complaining about other patients on the unit. He did apologize for his outburst on Friday with teletypewriter installer. He appeared to be fairly future oriented. He did continue to claim that he is feeling anxious and depressed. He was agreeable to have his medication increased. His affect appeared to be improving and he was more directable during conversation. He continues to be medication seeking and attempting to negotiate with teletypewriter installer. He states that he will attempt to try the Benadryl for sleep tonight and not the Ativan. He claims that he slept fairly last night. She states that he has not been going to groups. He did make passive suicidal thoughts however no intent or plan. Patient has been taking his medications. He is denying any homicidal ideations intent or plan. He is denying any auditory or visual hallucinations. Not endorsing any delusions. Mental Status Exam: General Appearance: Patient appears to be thin, balding, stated age is alert, less irritable today and more directable. Behavior: Patient is seated and was irritable and agitated. Less irritable today. Speech: Patient's speech is fluent and nonpressured. Mood/Affect: Mood is "depressed", affect is congruent Suicidality/Homicidality: Patient denies having any homicidal ideation intent or plan. Data passive suicidal thoughts however no intent or plan. Perceptions: Patient denies any visual hallucinations and denies any auditory hallucinations Though content/process: Focused on his medications. Her goal oriented. Memory and concentration: AOX3, grossly intact for the purposes of this session Judgment and insight: Chronically poor/impulsive, improving mildly Assessment Major depressive disorder, recurrent, severe without psychotic features Anxiety disorder unspecified Cluster B personality History of opiate abuse History of methamphetamine abuse Cannabis use disorder mild Nicotine dependence Plan: -Patient continues to meet criteria for inpatient psychiatric admission for symptom stabilization and safety. Patient has signed adult voluntary form and m edication consent and was placed in patient's chart. -Medications: Increase Cymbalta to 60 mg bid for mood/anxiety. Remeron to 30 mg daily at bedtime for insomnia/mood/appetite. Patient is on Suboxone prescribed at [facility] however will not receive this on the unit and will need to obtain it as an outpatient. vistaril prn for anxiety, benadryl 25 mg qhs prn for insomnia. clonidine 0.3 mgg bid for htn and opioid w/d sx. dicyclomine prn for dyspepsia. -When necessary Ativan and Haldol for agitation/aggression. -NRT - nicotine patch -SW on board for discharge planning. Encouraged the patient to participate in milieu. likely discharge in 1-2 days back home.
[2021-03-05] MEDS: MAG HYDROX/AL HYDROX/SIMETH 30 ML CUP PO PRN (15:19)
[2021-03-05] MEDS: DICYCLOMINE 20 MG TAB PO PRN (16:01)
[2021-03-05] MEDS ORDERED: DULoxetine HCL 60 MG CAPSULE.DR PO SCH (21:00)
[2021-03-05] MEDS: MIRTAZAPINE 15 MG TAB PO SCH (21:14)
[2021-03-06 06:42] VITALS: RESP 18; TEMP 98
[2021-03-06] MEDS: NICOTINE 14MG/24HR PATCH TRANSDERM SCH (07:58)
[2021-03-06] MEDS: NON FORMULARY DRUG (Buprenorphine Hcl/Naloxone Hcl [Suboxone 8 Mg-2 Mg Sl Film] 1 EACH Fil SUBLINGUAL SCH (07:58)
[2021-03-06] MEDS: cloNIDine HCL 0.1 MG TAB PO SCH (07:59)
[2021-03-06] MEDS: DULoxetine HCL 60 MG CAPSULE.DR PO SCH (07:59)
[2021-03-06 08:02] VITALS: BP 141/95; PULSE 80
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
== END 2021-03-06 12:30 | disposition home or self-care (01) | DRG 885 ==
LOC: EC 17:25 → 3MHU 03-01 01:47
PROVIDERS: ADMIT Psychiatry & Neurology Psychiatry; ATTEND Psychiatry & Neurology Psychiatry
DX: F33.2 Major depressive disorder, recurrent severe without psychotic features (principal); R45.851 Suicidal ideations; F12.10 Cannabis abuse, uncomplicated; F14.10 Cocaine abuse, uncomplicated; F15.10 Other stimulant abuse, uncomplicated; F11.10 Opioid abuse, uncomplicated; F60.89 Other specific personality disorders; I48.91 Unspecified atrial fibrillation; Z20.822 Contact with and (suspected) exposure to COVID-19; F90.9 Attention-deficit hyperactivity disorder, unspecified type; F41.1 Generalized anxiety disorder; G47.00 Insomnia, unspecified; I10 Essential (primary) hypertension; K21.9 Gastro-esophageal reflux disease without esophagitis; B19.20 Unspecified viral hepatitis C without hepatic coma; M25.559 Pain in unspecified hip; G89.4 Chronic pain syndrome; M25.562 Pain in left knee; F17.210 Nicotine dependence, cigarettes, uncomplicated; Z71.6 Tobacco abuse counseling; Z79.899 Other long term (current) drug therapy; Z90.89 Acquired absence of other organs; Z87.39 Personal history of other diseases of the musculoskeletal system and connective tissue; Z56.0 Unemployment, unspecified; Z91.5 Personal history of self-harm; Z98.890 Other specified postprocedural states; Z71.41 Alcohol abuse counseling and surveillance of alcoholic; Z71.51 Drug abuse counseling and surveillance of drug abuser; Z88.5 Allergy status to narcotic agent; Z88.8 Allergy status to other drugs, medicaments and biological substances; Z91.030 Bee allergy status; Z82.49 Family history of ischemic heart disease and other diseases of the circulatory system; Z81.8 Family history of other mental and behavioral disorders; Z80.9 Family history of malignant neoplasm, unspecified; Z83.1 Family history of other infectious and parasitic diseases
CPT/HCPCS: 80048; 80053; 80306; 82075; 83036; 84132; 87635; 99285

== ENCOUNTER → 2023-07-22 | Outpatient (CLI) | payer OTHER ==
[2023-07-22 15:47] LABS: Basophils # (A) 0.05 X 10*3/uL (0.00-0.10); Basophils % (A) 0.7 %; Eosinophils # (A) 0.47 X 10*3/uL (0.04-0.35); Eosinophils % (A) 6.7 %; HCT 43.7 % (39.6-50.0); HGB 15.2 g/dL (13.0-17.0); Lymphocytes % (A) 38.2 %; MCH 31.7 pg (27.0-32.0); MCHC 34.8 g/dL (32.0-37.0); MCV 91.2 FL (80.0-97.0); Mean Platelet Volume 10.3 FL (9.5-12.2); Monocytes # (A) 0.66 X 10*3/uL (0.20-1.00); Monocytes % (A) 9.3 %; NRBC Per 100 WBC 0 X 10*3/uL (0.00-0.01); Neutrophils # (A) 3.17 X 10*3/uL (1.80-7.70); Platelet Count 240 X 10*3/uL (140-440); RBC 4.79 X 10*6/uL (4.40-5.60); RDW 12.5 % (11.5-14.5); WBC 7.06 X 10*3/uL (4.50-10.00)
== END | disposition home or self-care (01) ==
LOC: LABPAT 10:16
PROVIDERS: ATTEND Surgery
DX: Z01.812 Encounter for preprocedural laboratory examination (principal); K40.90 Unilateral inguinal hernia, without obstruction or gangrene, not specified as recurrent
CPT/HCPCS: 36415; 85025; 86850; 86900; 86901; 93005

== ENCOUNTER 2023-07-29 07:35 | Day surgery (SDC) | payer OTHER ==
[2023-07-23 13:25] VITALS: BMI 29.8
[~2023-07-29 07:35] MED LIST: fentaNYL (PF) 50 MCG/ML 2 ML AMP IV PRN
[2023-07-29] MEDS: LACTATED RINGERS 1,000 ML IV SCH (08:08)
[2023-07-29] MEDS: DEXAMETHASONE SOD PHOSPHATE 4 MG/ML 1 ML VIAL IV ONE (08:30)
[2023-07-29] MEDS: SCOPOLAMINE 1 MG/72 HR PATCH TRANSDERM ONE (08:30)
[2023-07-29] MEDS: ONDANSETRON 4 MG/2 ML VIAL IVP ONE (08:30)
[2023-07-29] MEDS: ACETAMINOPHEN TAB 500 MG TAB PO PRN (08:30)
[2023-07-29] MEDS: MIDAZOLAM 2 MG/2 ML VIAL IV PRN (08:35)
--- NOTE | 2023-07-29 08:48 | P.ANPRN ---
Procedure Note - Anesthesia - Nerve Block Performed Bilateral Erector Spinae Single Time Out Performed: Yes Date of Procedure: 07/29/23 Procedure Start Time: 08:35 Procedure Stop Time: 08:41 Location of Patient: PreOp Indication: Acute Post-Operative Pain, Analgesia, Requested by Surgeon Sedation Type: Sedate with meaningful contact maintained Preparation: Sterile Prep Position: Prone Catheter: None Needle Types: Pajunk Needle Gauge: 21 Ultrasound used to visualize needle placement: Yes Ultrasound used to observe medication spread: Yes Injectate: 0.5% Ropivacaine (see comment for volume) (Ropiv 20ml+[id number]----Ddut side) Blood Aspirated: No Pain Paresthesia on Injection Noted: No Resistance on Injection: Normal Image Stored and Saved: Yes Events: Uneventful and Well Tolerated
[2023-07-29] MEDS: HEPARIN SODIUM,PORCINE 5,000 UNIT/ML 1 ML VIAL SQ PRN (08:53)
[2023-07-29] MEDS ORDERED: DEXAMETHASONE SOD PHOSPHATE 4 MG/ML 1 ML VIAL ONE (09:20)
[2023-07-29] MEDS ORDERED: ROCURONIUM 10 MG/ML (5 ML VIAL) IV ONE (09:20)
[2023-07-29] MEDS ORDERED: KETAMINE HCL IN 0.9 % NACL 50 MG/5 ML SYRINGE ONE (09:20)
[2023-07-29] MEDS ORDERED: NEOSTIGMINE 1 MG/ML 10 ML VIAL ONE (09:20)
[2023-07-29] MEDS ORDERED: PROPOFOL 10 MG/ML 20 ML VIAL IV ONE (09:20)
[2023-07-29] MEDS ORDERED: ROPIVACAINE 5 MG/ML 30 ML VIAL ONE (09:20)
[2023-07-29] MEDS ORDERED: MIDAZOLAM 2 MG/2 ML VIAL ONE (09:20)
[2023-07-29] MEDS ORDERED: SUCCINYLCHOLINE CHLORIDE 200 MG/10 ML VIAL IV ONE (09:20)
[2023-07-29] MEDS ORDERED: fentaNYL (PF) 50 MCG/ML 2 ML AMP ONE (09:20)
[2023-07-29] MEDS ORDERED: GLYCOPYRROLATE 0.2 MG/ML 2 ML VIAL ONE (09:20)
[2023-07-29] MEDS ORDERED: ESMOLOL 100 MG/10 ML VIAL ONE (09:20)
[2023-07-29] MEDS ORDERED: KETOROLAC 30 MG/ML 1 ML VIAL ONE (09:20)
[2023-07-29] MEDS ORDERED: LIDOCAINE 1% INJ 10MG/ML (20 ML MDV) ONE (09:20)
[2023-07-29] MEDS ORDERED: HYDROmorphone (PF) 1 MG/ML ONE (09:20)
[2023-07-29 09:24] VITALS: RESP 16
[2023-07-29] MEDS: BUPIVACAINE (PF) 0.25% 30 ML VIAL SQ ONE (09:40)
[2023-07-29] MEDS: IV FLUID CONTINUATION 1,000 ML IV ONE (10:08)
--- NOTE | 2023-07-29 10:34 | P.OP ---
Date of Procedure: 07/29/23 Preoperative Diagnosis: left inguinal hernia Postoperative Diagnosis: bilateral inguinal hernia Left cord lipoma Procedure(s) Performed: transverse abdominis plan block Excision of left cord lipoma Laparoscopic robotic repair of left and right inguinal hernia Anesthesia: KIMBERLEE Surgeon: Demetrio Taylor Estimated Blood Loss (ml): 5 Pathology: other (left cord lipoma) Condition: stable Disposition: PACU Description of Procedure: The patient's placed on the operating table in the supine position. The patient received general anesthesia. The patient's abdomen was prepped and draped in usual sterile fashion. The skin was anesthetized 1% local Xylocaine at the incision sites. Using an 11 blade a skin incision was made at the umbilicus. The fascia was grasped with a Charlotte and then the peritoneal cavity was entered with the Veress needle. Position of the Veress needle was confirmed with a positive drop test. After adequate insufflation a 5 mm trocar was placed into the peritoneal cavity. The Laparoscope was placed the peritoneal cavity. And a robotic 8 mm trocar was placed in the right lateral position and then another 8 mm robotic trochars placed in the left lateral position. The original 5 mm trocar was exchanged for a 8 mm trocar. A four-quadrant transversus abdominis plane block was then performed using 1% local Xylocaine. The patient was placed in reverse Trendelenburg and then the patient was docked to the robot. Next the peritoneum over top of the right inguinal hernia was incised and then using blunt and sharp dissection and electrocautery the hernia sac was dissected free from the floor of the inguinal canal. The hernia sac was completely reduced into the peritoneal cavity. And then using the Pro urban redevelopment specialist mesh the hernia was repaired. The peritoneum was then sutured with 20V lock suture. Next the peritoneum over top of the left inguinal hernia was incised and then using blunt and sharp dissection and electrocautery the hernia sac was dissected free from the floor of the inguinal canal. the cord lipoma was dissected free se nt to pathology. The hernia sac was completely reduced into the peritoneal cavity. And then using the Pro urban redevelopment specialist mesh the hernia was repaired. The peritoneum was then sutured with 20V lock suture. The patient was then undocked the robot. The needle was withdrawn from the peritoneal cavity. The umbilical trocar site was closed with 0 Ethibond suture. The skin was closed interrupted 3-0 Monocryl suture. Dermabond dressing was applied. Patient was sent to recovery in stable condition.
[2023-07-29 11:23] VITALS: TEMP 97
[2023-07-29 12:07] VITALS: BP 149/82; PULSE 60
== END 2023-07-29 12:02 | disposition home or self-care (01) ==
LOC: OR 07:35
PROVIDERS: ATTEND Surgery
DX: K40.20 Bilateral inguinal hernia, without obstruction or gangrene, not specified as recurrent (principal); D17.6 Benign lipomatous neoplasm of spermatic cord; G89.18 Other acute postprocedural pain; I48.91 Unspecified atrial fibrillation; I10 Essential (primary) hypertension; F17.200 Nicotine dependence, unspecified, uncomplicated; F98.8 Other specified behavioral and emotional disorders with onset usually occurring in childhood and adolescence; F31.9 Bipolar disorder, unspecified; F41.8 Other specified anxiety disorders; Z88.6 Allergy status to analgesic agent; Z88.8 Allergy status to other drugs, medicaments and biological substances; K21.9 Gastro-esophageal reflux disease without esophagitis; Z86.19 Personal history of other infectious and parasitic diseases; Z79.899 Other long term (current) drug therapy; Z91.030 Bee allergy status; Z91.09 Other allergy status, other than to drugs and biological substances; Z79.1 Long term (current) use of non-steroidal anti-inflammatories (NSAID)
CPT/HCPCS: 49650; S2900; 64999; 88304

== ENCOUNTER → 2024-08-11 | Outpatient (CLI) | payer OTHER ==
--- NOTE | 2024-08-11 21:43 | US ---
EXAMINATION TYPE: US groin BILAT DATE OF EXAM: 08/11/2024 COMPARISON: NONE CLINICAL INDICATION: Male, 44 years old with history of R19.09 INTRA ABD PELVIC SWELLING MASS LUMP; pt had bilateral inguinal hernia repair 07/29/2023, more pain/tenderness on left side TECHNIQUE: Grayscale with or without color Doppler imaging of the area of hernia concern. Real-time scanning was performed by the employment educational coord utilizing Valsalva and additional dynamic maneuve rs to assess for hernia. Images of the contralateral side were also acquired for direct comparison. FINDINGS: The following are the sonographers comments: Assess for hernia at location of: Bilateral groins scanned for hernia assessment Valsalva images obtained ? Left sided bowel protruding hernia vs fat containing Approximant ?wall measurement: 0.8cm Right groin: Multiple probable lymph nodes seen, Largest: 1. 3.4x0.6x1.2cm 2. 1.4x0.5x0.9cm Additional Notes: The provided images do not demonstrate the landmarks typically utilized for assessment of inguinal he rnia. Images labeled left over the area of concern show vague rounded hypoechoic area measuring appro ximately 1.8 cm that changes to 2.6 cm upon Valsalva. Unable to exclude a small residual fatty inguin al hernia. No bowel is clearly identified here. There heart some borderline sized but nonenlarged lymph nodes in the right inguinal region. IMPRESSION: Limited exam. The landmarks utilized for assessment of inguinal hernia are not provided. Left-sided i mages show a vague rounded area measuring approximately 1.8 cm that changes to 2.6 cm upon Valsalva. Unable to exclude a residual small fat-containing inguinal hernia. If persistent symptoms, consider f urther CT evaluation without and with Valsalva [facility], , 08/11/2024 9:41 PM
--- NOTE | 2024-08-11 21:46 | US ---
EXAMINATION TYPE: US abdomen limited DATE OF EXAM: 08/11/2024 COMPARISON: NONE CLINICAL INDICATION: Male, 44 years old with history of R19.09 INTRA ABD PELVIC SWELLING MASS LUMP; B ilateral Inguinal hernia repair 07/29/2023 pt states "shooting" pain below umbilicus, not as tender as left groin pain TECHNIQUE: Targeted ultrasound in the periumbilical region corresponding to the site of patient's pa in. FINDINGS: The following represents the process chemist comments: Anterior Umbilicus: Hyperechoic area seen: 0.9x0.5x0.6cm Posterior Umbilicus: Hyperechoic area seen: 0.5x0.3x0.2cm IMPRESSION: Provided images show a couple echogenic areas within the subcutaneous fat layer at the umbilicus emelina uring 9 mm and 5 mm. Given recent surgery, a couple small areas of developing fat necrosis are favore d. Tiny subcutaneous hematomas are also possible. Follow-up in 2-3 months to reassess. [facility], , 08/11/2024 9:44 PM
== END | disposition home or self-care (01) ==
LOC: RADUSWWP 08:51
PROVIDERS: ATTEND Surgery Plastic and Reconstructive Surgery
DX: R19.05 Periumbilic swelling, mass or lump (principal); K40.90 Unilateral inguinal hernia, without obstruction or gangrene, not specified as recurrent
CPT/HCPCS: 76705; 76882

== ENCOUNTER → 2024-10-28 | Day surgery (SDC) | payer OTHER ==
[2024-10-27 12:14] VITALS: BMI 31.1
[~2024-10-28] MED LIST changes: +DEXAMETHASONE SOD PHOSPHATE 4 MG/ML 1 ML VIAL ONE; +GLYCOPYRROLATE 0.2 MG/ML 2 ML VIAL ONE; +HYDROmorphone 0.5 MG/0.5 ML SYRINGE IVP PRN; +KETAMINE HCL IN 0.9 % NACL 50 MG/5 ML SYRINGE ONE; +LABETALOL 5 MG/ML VIAL MDV ONE; +LIDOCAINE 1% (10MG/ML) FOR IV START INTRADERMA PRN; +LIDOCAINE 1% INJ 10MG/ML (20 ML MDV) ONE; +NEOSTIGMINE 1 MG/ML 10 ML VIAL ONE; +PROPOFOL 10 MG/ML 20 ML VIAL IV ONE; +ROCURONIUM 10 MG/ML (5 ML VIAL) IV ONE; +ROPIVACAINE 5 MG/ML 30 ML VIAL ONE; +SCOPOLAMINE 1 MG/72 HR PATCH TRANSDERM ONE; +SODIUM CHLORIDE 0.9% (PF) 10 ML VIAL ONE; +SUCCINYLCHOLINE CHLORIDE 200 MG/10 ML VIAL IV ONE; +droPERidol 2.5 MG/ML VIAL IVP ONE; -fentaNYL (PF) 50 MCG/ML 2 ML AMP IV PRN
--- NOTE | 2024-10-28 12:14 | P.GSHP ---
History of Present Illness H&P Date: 10/28/24 CHIEF COMPLAINT: Inguinal hernia, left HISTORY OF PRESENT ILLNESS: The patient is a 44-year-old male who presents with a history of swelling and pain along the left groin. He has had previous repair. He's noted increased swelling including pain of the area. Now he presents for repair of his inguinal hernia. PAST MEDICAL HISTORY: Please see list. PAST SURGICAL HISTORY: Please see list. MEDICATIONS: Please see list. ALLERGIES: Please see list. SOCIAL HISTORY: No illicit drug use FAMILY HISTORY: No reports of Crohn disease or ulcerative colitis. REVIEW OF ORGAN SYSTEMS: CONSTITUTIONAL: No reports of fevers or chills. No reports of weight loss despite prior attempts. GI: Denies any blood in stools or constipation. PHYSICAL EXAM: VITAL SIGNS: Stable GENERAL: Well-developed pleasant male in no acute distress. HEENT: No scleral icterus. Extraocular movements grossly intact. Moist buccal mucosa. NECK: Supple without lymphadenopathy. CHEST: Unlabored respirations. Equal bilateral excursions. CARDIOVASCULAR: Regular rate and rhythm. Distal 2+ pulses. ABDOMEN: Soft, nondistended. No peritoneal signs. Palpable defect of the left groin. MUSCULOSKELETAL: No clubbing, cyanosis, or edema. ASSESSMENT: 1. Inguinal hernia, left, recurrent PLAN: 1. Recommend proceeding with a robotic inguinal repair with mesh with possible bilateral approach. 2. Benefits and risks of surgical intervention was discussed including possibility of open technique. 3. DVT prophylaxis. 4. Antibiotic prophylaxis. 5. Non narcotic pain management including abdominal wall block described 6. Blood sugar glucose described. 7. Weight loss management described. 8. Abdominal wall block advised Past Medical History Past Medical History: Atrial Fibrillation, Chest Pain / Angina, GERD/Reflux, Hypertension Additional Past Medical History / Comment(s): chronic pain syndrome, left knee pain, HEP C, SITUATIONAL DEPRESSION PAST SUICIDAL IDEATIONS-none currently, GENERALIZED ANXIETY. 8-14-15 History of Any Multi-Drug Resistant Organisms: None Reported Past Surgical History: Orthopedic Surgery, Tonsillectomy Additional Past Surgical History / Comment(s): LEFT KNEE with ACL and PCL reconstruction for a total of 4 surgeries. foreign body removal right hand. Foreign body removal left foot Past Anesthesia/Blood Transfusion Reactions: No Reported Reaction Additional Past Anesthesia/Blood Transfusion Reaction / Comment(s): no hx blood transfusions Smoking Status: Current every day smoker - Past Family History Mother Family Medical History: Cancer, Hypertension Additional Family Medical History / Comment(s): anxiety, depression. breast, brain, and bone CA. "Hardened Arteries" Father Family Medical History: Hypertension Additional Family Medical History / Comment(s): Hep B Brother(s) Family Medical History: No Reported History Medications and Allergies Home Medications Medication Instructions Recorded Confirmed Type Buprenorphine HCl/Naloxone HCl 1 film SL TID 02/28/21 10/27/24 History [Suboxone 8 mg-2 mg Sl Film] Acetaminophen Tab [Tylenol] 1,000 mg PO BID 07/23/23 10/27/24 History Cholecalciferol [Vitamin D3 (25 50 mcg PO DAILY 07/23/23 10/27/24 History Mcg = 1000 Iu)] Meloxicam [Mobic] 7.5 mg PO DAILY 07/23/23 10/27/24 History Mirtazapine [Remeron] 45 mg PO HS 07/23/23 10/27/24 History Omeprazole 20 mg PO QAM 07/23/23 10/27/24 History cloNIDine HCL [Catapres] 0.3 mg PO TID 07/23/23 10/27/24 History lisinopriL [Zestril] 5 mg PO QAM 07/23/23 10/27/24 History Acetaminophen Tab [Tylenol] 650 mg PO Q6H #30 tab 07/29/23 10/27/24 Rx Aspirin 81 mg PO DAILY 10/27/24 10/27/24 History Allergies Allergy/AdvReac Type Severity Reaction Status Date / Time adhesive tape Allergy Rash/Hives Verified 10/27/24 11:55 tramadol HCl [From Ultra] Allergy Rash/Hives Verified 10/27/24 11:55 venom-honey bee Allergy Rash/Hives Verified 10/27/24 11:55 [bee venom (honey bee)] ziprasidone HCl [From Geodon] Allergy Swelling Verified 10/27/24 11:55 ziprasidone mesylate Allergy Swelling Verified 10/27/24 11:55 [From Geodon]
[2024-10-28] MEDS: IV FLUID CONTINUATION 1,000 ML IV ONE (12:50)
[2024-10-28 12:51] VITALS: TEMP 97.6
[2024-10-28 13:04] LABS: Basophils # (A) 0.05 10*3/uL (0.00-0.10); Basophils % (A) 0.6 %; Eosinophils # (A) 0.25 10*3/uL (0.04-0.35); Eosinophils % (A) 3.2 %; HCT 43.1 % (39.6-50.0); HGB 16.1 g/dL (13.0-17.0); Lymphocytes # (A) 2.15 10*3/uL (0.90-5.00); Lymphocytes % (A) 27.2 %; MCH 33.3 pg (27.0-32.0); MCHC 37.4 g/dL (32.0-37.0); MCV 89.2 fL (80.0-97.0); Monocytes # (A) 0.68 10*3/uL (0.20-1.00); Monocytes % (A) 8.6 %; Neutrophils # (A) 4.74 10*3/uL (1.80-7.70); Neutrophils % (A) 60.1 %; Platelet Count 255 10*3/uL (140-440); RBC 4.83 10*6/uL (4.40-5.60); RDW 11.9 % (11.5-14.5); WBC 7.89 10*3/uL (4.50-10.00)
[2024-10-28] MEDS: ONDANSETRON 4 MG/2 ML VIAL IVP ONE (13:14)
[2024-10-28] MEDS: LACTATED RINGERS 1,000 ML IV SCH (13:14)
[2024-10-28] MEDS: DEXAMETHASONE SOD PHOSPHATE 4 MG/ML 1 ML VIAL IV ONE (13:14)
[2024-10-28] MEDS: MELOXICAM 7.5 MG TAB PO PRN (13:15)
[2024-10-28] MEDS: ACETAMINOPHEN TAB 500 MG TAB PO PRN (13:15)
[2024-10-28 13:16] LABS: African American GFR (CKD) >90 (>60 ml/min/1.73 sqM); Albumin 4.5 g/dL (3.5-5.0); Anion Gap 12 mmol/L; Blood Urea Nitrogen 16 mg/dL (9-20); Calcium 10.0 mg/dL (8.4-10.2); Carbon Dioxide 23 mmol/L (22-30); Chloride 106 mmol/L (98-107); Glucose 126 mg/dL (74-99); Non-African American GFR(CKD) >90 (>60 ml/min/1.73 sqM); Potassium 4.2 mmol/L (3.5-5.1); Sodium 141 mmol/L (137-145); Total Protein 7.8 g/dL (6.3-8.2)
[2024-10-28 13:17] LABS: ALT 38 U/L (4-49); AST 43 U/L (17-59); Alkaline Phosphatase 85 U/L (38-126)
[2024-10-28] MEDS: MIDAZOLAM 2 MG/2 ML VIAL IV ONE (13:49)
[2024-10-28] MEDS: HEPARIN SODIUM,PORCINE 5,000 UNIT/ML 1 ML VIAL SQ PRN (13:56)
[2024-10-28] MEDS: LIDOCAINE 1%-EPI 1:100,000 20 ML VIAL SQ ONE (15:22)
[2024-10-28] MEDS: LACTATED RINGERS 1,000 ML IV ONE (15:45)
[2024-10-28 17:14] VITALS: RESP 16
[2024-10-28] MEDS: ONDANSETRON 4 MG/2 ML VIAL IVP PRN (17:20)
[2024-10-28] MEDS: hydrALAZINE HCL 20 MG/ML 1 ML VIAL IVP STA (18:19)
[2024-10-28] MEDS: METOPROLOL TARTRATE 5 MG/5 ML VIAL IVP STA (18:47)
[2024-10-28] MEDS: ACETAMINOPHEN IV (For NPO) 1,000 MG in EMPTY BAG 1 BAG IVPB STA (19:08)
[2024-10-28 19:11] VITALS: BP 188/110; PULSE 77
--- NOTE | 2024-10-29 06:53 | P.ANPRN ---
Procedure Note - Anesthesia - Nerve Block Performed Bilateral Erector Spinae Single Time Out Performed: Yes Date of Procedure: 10/28/24 Procedure Start Time: 13:49 Procedure Stop Time: 13:55 Location of Patient: PreOp Indication: Acute Post-Operative Pain, Requested by Surgeon Sedation Type: Sedate with meaningful contact maintained Preparation: Sterile Prep Position: Prone Needle Types: Pajunk Needle Gauge: 21 Ultrasound used to visualize needle placement: Yes Ultrasound used to observe medication spread: Yes Blood Aspirated: No Pain Paresthesia on Injection Noted: No Resistance on Injection: Normal Image Stored and Saved: Yes Events: Uneventful and Well Tolerated (Ropivacaine 0.5% 15 cc plus normal saline 10 cc per dexamethasone 4 mg given bilaterally at L1)
--- NOTE | 2024-11-21 18:04 | P.OP ---
Date of Procedure: 10/28/24 Description of Procedure: SURGEON: EUSEBIA JACKSON MD PREOPERATIVE DIAGNOSES: 1. Recurrent left inguinal hernia, symptomatic 2. Previous right inguinal hernia repair 3. Atrial fibrillation 4. Gastroesophageal reflux disease 5. Hypertensive heart disease 6. ADD with ADHD 7. Generalized anxiety disorder 8. Bipolar disorder 9. Depressive disorder 10. Tobacco abuse disorder 11. History of methamphetamine abuse 12. History of cocaine abuse 13. History of opiate abuse POSTOPERATIVE DIAGNOSES: 1. Right obturator inguinal hernia, 3 x 3 cm 2. Previous right inguinal hernia 3. Left pelvic adhesions 1. Recurrent left inguinal hernia, symptomatic 2. Previous right inguinal hernia repair 3. Atrial fibrillation 4. Gastroesophageal reflux disease 5. Hypertensive heart disease 6. ADD with ADHD 7. Generalized anxiety disorder 8. Bipolar disorder 9. Depressive disorder 10. Tobacco abuse disorder 11. History of methamphetamine abuse 12. History of cocaine abuse 13. History of opiate abuse 14. Pelvic adhesions OPERATION: 1. Robotic-assisted da Reinaldo Xi laparoscopic repair of recurrent left inguinal hernia, 3 x 3 cm with mesh, 11.[address] 2. Robotic-assisted da Reinaldo Xi laparoscopic lysis of adhesions 3. Excision of subfascial inguinal lipoma, 2 x 5 cm ANESTHESIA: General with local anesthetic, regional ESTIMATED BLOOD LOSS: 5 mL. SPECIMENS REMOVED: Left inguinal hernia lipoma COMPLICATIONS: None. FINDINGS: 1. Reducible left inguinal/obturator hernia, 3 cm, with excision of inguinal lipoma 2. Recurrent left indirect inguinal hernia, 2 cm 3. Pelvic adhesions right lower quadrant excised. 4. Presence of prior mesh repair via preperitoneal space INDICATIONS: The patient is a 44-year-old gentleman who presents with increasing left groin pain including swelling. He has past history bilateral inguinal hernia repairs. Now presents for definitive surgical intervention. Laparoscopic versus open and robotic approaches were discussed. Benefits and risks including bleeding, infection, injury to the vas deferens as well as sterility and chronic groin pain were reviewed. Placement of mesh was also described. Informed consent was obtained. DESCRIPTION: In the preoperative area, the patient was marked with indelible marker along the inguinal hernia. The patient was brought to the operating room and initially laid in supine position. The abdomen had been prepped and draped in standard sterile fashion. Ioban draping was also placed. Prior to incision, a timeout protocol was confirmed with surgical team regarding patient's name including procedures to be performed and location along the right groin. Second-generation cephalosporin, Ancef 2 g was given. Heparin 5000 units were given including bilateral SCDs. Initial positioning for the robotic assisted ports were selected whereby 20 cm superior to the target anatomy, 0 degree 5 mm laparoscopic trocar entry was performed at the left upper quadrant. The abdomen was insufflated to 15 mmHg which he had tolerated well. Diagnostic laparoscopy demonstrated omental abdominal wall adhesions on the left groin obscuring the left inguinal canal. Adhesions along the right groin was found without recurrent hernias. Next, along the epigastrium, 8 mm robot trocar was placed. An 8-mm robotic trocar was placed under direct visualization at the right upper quadrant. An 8 mm port was placed at the left upper quadrant. All trocars were positioned between 8 to 10-cm apart from each other. A separate 12-mm trocar was placed along the right lateral abdominal wall. The [employer] XI robot was primed, draped, prepared for docking along the right side of the patient. The patient was placed in Trendelenberg position 14-degrees. I then went to the [employer] Xi console. The staffing assistant was at bedside for exchange of the robot arms and equipment. Adhesions on the pelvis was identified and excised using scissors with cautery. Adhesions were identified with exposure of a recurrent left inguinal hernia. Defect measured 3 x 3 cm. The left inguinal hernia was explored where overall 5 cm inguinal subfascial lipoma was excised. Additionally, a left inguinal hernia sac was evaginated whereby the peritoneum was scored using vessel sealer. Endoscopic images were obtained. Using a 2-0 nonabsorbable VLOC, the fascial defect was closed using conjoined tendon to tendon defect from medial to lateral. The peritoneal defect of the left inguinal hernia was closed using a pursestring suture. The defect was found to be completely closed. As an onlay, an 11.[address] mesh by [employer] was initially cut in half and entered into the abdominal cavity via the 8 mm trocar. The mesh was tacked to the pelvis using nonabsorbable 2-0 VLOC 9-inch length sutures. The robot was undocked from the patient's bedside. I then rescrubbed into the case. Insufflation was released from the abdominal cavity and all instruments were removed from the abdominal cavity. The rest of incisions were reapproximated using 4-0 Monocryl in a running subcuticular fashion. Incisions were cleansed using dilute hydrogen peroxide. Liquid glue was applied to the skin. At the end of the procedure, the needle, sponge and instrument counts had been verified correct by the surgical services tech. The patient had tolerated the procedure well and was taken to the postanesthesia care unit in stable condition. Plan - Discharge Summary Discharge Rx Participant: No New Discharge Prescriptions: New Cyclobenzaprine [Flexeril] 10 mg PO TID #30 tab Acetaminophen Tab [Tylenol Tab] 1,000 mg PO Q6HR PRN #30 tablet PRN Reason: Pain Simethicone [Gas-X] 125 mg PO AC-TID PRN #20 capsule PRN Reason: Pain Continue Buprenorphine HCl/Naloxone HCl [Suboxone 8 mg-2 mg Sl Film] 1 film SL TID Cholecalciferol [Vitamin D3 (25 Mcg = 1000 Iu)] 50 mcg PO DAILY Aspirin 81 mg PO DAILY cloNIDine HCL [Catapres] 0.3 mg PO TID lisinopriL [Zestril] 5 mg PO QAM Meloxicam [Mobic] 7.5 mg PO DAILY Mirtazapine [Remeron] 45 mg PO HS Omeprazole 20 mg PO QAM Discontinued Acetaminophen Tab [Tylenol] 650 mg PO Q6H #30 tab Acetaminophen Tab [Tylenol] 1,000 mg PO BID Discharge Medication List Buprenorphine HCl/Naloxone HCl [Suboxone 8 mg-2 mg Sl Film] 1 film SL TID 02/28/21 [History] Cholecalciferol [Vitamin D3 (25 Mcg = 1000 Iu)] 50 mcg PO DAILY 07/23/23 [History] Meloxicam [Mobic] 7.5 mg PO DAILY 07/23/23 [History] Mirtazapine [Remeron] 45 mg PO HS 07/23/23 [History] Omeprazole 20 mg PO QAM 07/23/23 [History] cloNIDine HCL [Catapres] 0.3 mg PO TID 07/23/23 [History] lisinopriL [Zestril] 5 mg PO QAM 07/23/23 [History] Aspirin 81 mg PO DAILY 10/27/24 [History] Acetaminophen Tab [Tylenol Tab] 1,000 mg PO Q6HR PRN #30 tablet 10/28/24 [Rx] Cyclobenzaprine [Flexeril] 10 mg PO TID #30 tab 10/28/24 [Rx] Simethicone [Gas-X] 125 mg PO AC-TID PRN #20 capsule 10/28/24 [Rx] Follow up Appointment(s)/Referral(s): Eusebia Jackson MD [STAFF PHYSICIAN] - 11/02/24 6:30 pm (TELEHEALTH - DR WILL CALL YOU AT HOME) Patient Instructions/Handouts: Laparoscopic Herniorrhaphy (IP), Lysis of Abdominal Adhesions (DC) Activity/Diet/Wound Care/Special Instructions: TELEHEALTH - WILL CALL YOU BETWEEN 9 am to 8 pm NO LONG DRIVES OR AIRPLANE RIDES OVER 90 MINUTES FOR THE NEXT 2 WEEKS,11/11/24, DUE TO HIGH RISK OF PULMONARY EMBOLISM/DVTs May drive in 24 hrs after recovery from anesthesia No lifting over 10 pounds in 2 weeks until 11/11/24 May shower. No bath tub soaks for two weeks until 11/11/24 Diet as tolerated. Use Tylenol, simethicone and ibuprofen or Aleve scheduled for the next 24-48 hours for best pain relief. Use ice along incisions for today to prevent swelling. Discharge Disposition: HOME SELF-CARE
== END | disposition home or self-care (01) ==
LOC: OR 12:19
PROVIDERS: ATTEND Surgery Plastic and Reconstructive Surgery
DX: K40.91 Unilateral inguinal hernia, without obstruction or gangrene, recurrent (principal); D17.72 Benign lipomatous neoplasm of other genitourinary organ; K21.9 Gastro-esophageal reflux disease without esophagitis; I11.9 Hypertensive heart disease without heart failure; I48.91 Unspecified atrial fibrillation; F90.9 Attention-deficit hyperactivity disorder, unspecified type; F31.30 Bipolar disorder, current episode depressed, mild or moderate severity, unspecified; F41.1 Generalized anxiety disorder; F14.10 Cocaine abuse, uncomplicated; F17.210 Nicotine dependence, cigarettes, uncomplicated; L23.1 Allergic contact dermatitis due to adhesives; Z90.89 Acquired absence of other organs; Z82.49 Family history of ischemic heart disease and other diseases of the circulatory system; Z88.8 Allergy status to other drugs, medicaments and biological substances; Z88.9 Allergy status to unspecified drugs, medicaments and biological substances; Z91.030 Bee allergy status; Z79.1 Long term (current) use of non-steroidal anti-inflammatories (NSAID); Z79.82 Long term (current) use of aspirin; Z79.899 Other long term (current) drug therapy
CPT/HCPCS: 49651; S2900; 64468; 80053; 85025; 88305